=== PATIENT | male | born 1940 | race Caucasian/White ===

== ENCOUNTER 2016-03-18 20:31 | Observation (INO) | payer OTHER ==
[2016-03-18] MEDS ORDERED: NS 500 ML IV ONE (20:56)
--- NOTE | 2016-03-18 21:02 | EDPHY ---
H & P Time Seen by Provider: 03/18/16 20:41 HPI/ROS: CHIEF COMPLAINT: "siezure" HISTORY OF PRESENT ILLNESS: Patient is a 75-year-old male who presents emergency department with seizures. Patient developed a viral cough about 7 weeks ago. He has now had numerous episodes of seizure after having coughing episodes. Patient was seen the Tuesday before Rox[facility] at [facility] for these symptoms. He was treated with albuterol and antibiotics. Since that time he has had numerous episodes of this seizure-like activity and collapse. Today it was the worst. He was sitting on the couch. He had a coughing fit and then had seizure-like activity. He laid on the ground and was unresponsive. When he woke up he had no idea that anything was wrong. He thought he had been sleeping. The patient has no complaints at this time. He states he is here only because his made him. He denies headache, neck pain , nausea, vomiting, chest pain, shortness of breath. REVIEW OF SYSTEMS: My complete review of systems is negative except as mentioned in the HPI. Past Medical/Surgical History: Includes pneumonia, diverticulitis Past surgical history: Noncontributory Social history: The patient is . He smokes regularly. Smoking Status: Current every day smoker Physical Exam: Vitals noted GENERAL: Well-appearing, in no acute distress, alert. HEENT: Eyes normal to inspection, normal pharynx, no signs of dehydration. NECK: No thyromegaly, no lymphadenopathy, supple. RESPIRATORY: Clear to auscultation bilaterally, no rales, rhonchi or wheezing. CVS: Regular rate and rhythm, no rubs, murmurs, or gallops. ABDOMEN: Soft, nontender, nondistended, no organomegaly. BACK: Normal to inspection, no CVA tenderness. SKIN: Normal color, no rash, warm, dry. No pallor. EXTREMITIES: No pedal edema, no calf tenderness, no Homans sign or cords, no joint swelling. NEURO/PSYCH: Higher functions: Alert and Oriented x3. Normal speech and cognition. Normal mood and affect. Cranial nerves: Normal as tested. Cerebellar: Normal as tested. Good finger to nose, good [id number]-lvzf, normal gait. Peripheral exam: Normal motor exam. Normal sensation. Normal reflexes. Constitutional: Initial Vital Signs Temperature (C) 36.7 C 03/18/16 20:36 Heart Rate 79 03/18/16 20:36 Respiratory Rate 16 03/18/16 20:36 Blood Pressure 138/69 H 03/18/16 20:36 O2 Sat (%) 90 L 03/18/16 20:36 O2 Delivery Mode Room Air Allergies/Adverse Reactions: Penicillins Allergy (Unknown, Verified 03/18/16 20:35) Other-Enter Comments Home Medications: Medication Instructions Recorded NO HOME MEDS 07/28/09 Aspirin 03/18/16 Multi-Vitamin Daily 03/18/16 Medical Decision Making ED Course/Re-evaluation: In the emergency department I discussed possible etiologies. I answered all the patient's questions. IV was placed. Laboratory studies, chest x-ray and CT scan were ordered. I reviewed the patient's laboratories studies. The patient has a normal troponin. Chemistry and CBC are normal. Head CT: Please refer the dictated report by Dr. Pancho Benito. No significant bleed or mass. Differential Diagnosis: My differential includes but is not limited to dysrhythmia, syncope, ACS, acute CO, malignancy, mass, subarachnoid hemorrhage, subdural hematoma - Data Points Laboratory Results: Laboratory Results 03/18/16 21:25 03/18/16 21:25 03/18/16 21:25 WBC 8.94 10^3/uL (3.80-9.50) RBC 4.49 10^6/uL (4.40-6.38) Hgb 15.3 g/dL (13.7-17.5) Hct 42.7 % (40.0-51.0) MCV 95.1 fL (81.5-99.8) MCH 34.1 pg (27.9-34.1) MCHC 35.8 g/dL (32.4-36.7) RDW 12.7 % (11.5-15.2) Plt Count 331 10^3/uL (150-400) MPV 9.8 fL (8.7-11.7) Neut % (Auto) 66.6 % (39.3-74.2) Lymph % (Auto) 22.6 % (15.0-45.0) [place] % (Auto) 7.9 % (4.5-13.0) Eos % (Auto) 2.1 % (0.6-7.6) Baso % (Auto) 0.6 % (0.3-1.7) Nucleat RBC Rel Count 0.0 % (0.0-0.2) Absolute Neuts (auto) 5.95 10^3/uL (1.70-6.50) Absolute Lymphs (auto) 2.02 10^3/uL (1.00-3.00) Absolute Monos (auto) 0.71 10^3/uL (0.30-0.80) Absolute Eos (auto) 0.19 10^3/uL (0.03-0.40) Absolute Basos (auto) 0.05 10^3/uL (0.02-0.10) Absolute Nucleated RBC 0.00 10^3/uL (0-0.01) Immature Gran % 0.2 % (0.0-1.1) Immature Gran # 0.02 10^3/uL (0.00-0.10) PT 12.8 SEC (12.0-15.0) INR 0.97 (0.83-1.16) APTT 29.0 SEC (23.0-38.0) Sodium 141 mEq/L (134-144) Potassium 4.7 mEq/L (3.5-5.2) Chloride 102 mEq/L (97-110) Carbon Dioxide 27 mEq/l (22-31) Anion Gap 12 mEq/L (8-16) BUN 19 mg/dL (7-23) Creatinine 1.1 mg/dL (0.7-1.3) Estimated GFR > 60 Glucose 76 mg/dL (70-100) Calcium 9.5 mg/dL (8.5-10.4) Troponin I < 0.012 ng/mL (0-0.034) Medications Given: Discontinued Medications Sodium Chloride (Ns) 500 mls @ 500 mls/hr IV EDNOW ONE Stop: 03/18/16 21:55 Last Admin: 03/18/16 21:30 Dose: 500 mls
--- NOTE | 2016-03-18 21:28 | CT ---
CT Head Without Contrast History: Syncope Technique: Soft tissue and bone window evaluation is performed. Dose reduction techniques were utiliz ed. Findings: There is subtle asymmetric hypodensity in the white matter lateral to the posterior upper l eft thalamus, deep within the left posterior temporal lobe. There is no evidence for hemorrhage or mi dline shift. There is a small old lacunae in the left posterior limb internal capsule. Ventricular si ze is normal and is consistent with the mildly atrophic sulci. There is no evidence of a subdural hem atoma. The ambient cistern is patent. Bone window evaluation does not show evidence of a fracture or pneumocephalus. There is atherosclerotic calcification of both distal internal carotid arteries. Ther e are bilateral nasal antral windows. There is mucus and mucosal thickening in the left maxillary sin us which remains partially aerated. The other paranasal and mastoid sinuses and both middle ears matthew in normally aerated. There is severe degenerative change of the joint between the right lateral mass of C1 and C2, likely related to remote trauma. There is degenerative arthritic change of the joint be tween the odontoid process and the anterior ring of C1. 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 Impression: Subtle asymmetry in the deep left posterior temporal lobe. Consider CT with IV contrast o r MRI without and with contrast for further evaluation. Final concordant results discussed with Dr. Loerna Billy at 9:24 p.m. General information for patients regarding this examination can be found at [email or web address]. If you have questions or comments about this report, please contact me at [phone] (hospital) or [phone] (cell).
[2016-03-18 21:37] LABS: % IMMATURE GRANULYOCYTES 0.2 % (0.0-1.1); ABSOLUTE IMMATURE GRANULOCYTES 0.02 10^3/uL (0.00-0.10); ADD DIFF? NO; ADD MORPH? NO; ADD SCAN? NO; ATYPICAL LYMPHOCYTE FLAG 20 (0-99); FRAGMENT RBC FLAG 0 (0-99); HEMATOCRIT 42.7 % (40.0-51.0); HEMOGLOBIN 15.3 g/dL (13.7-17.5); LEFT SHIFT FLG 0 (0-99); LIPEMIA HEMOLYSIS FLAG 90 (0-99); MEAN CELL HEMOGLOBIN 34.1 pg (27.9-34.1); MEAN CELL HEMOGLOBIN CONCENTR. 35.8 g/dL (32.4-36.7); MEAN CELL VOLUME 95.1 fL (81.5-99.8); MEAN PLATELET VOLUME 9.8 fL (8.7-11.7); PLATELET CLUMPS FLAG 10 (0-99); PLATELET COUNT 331 10^3/uL (150-400); RED BLOOD CELL COUNT 4.49 10^6/uL (4.40-6.38); RED CELL DISTRIBUTION WIDTH 12.7 % (11.5-15.2)
--- NOTE | 2016-03-18 21:40 | DX ---
Chest, PA and Lateral History: Patient fainted today. Comparison: April 26, 2014 Findings: No pneumothorax, pleural effusion, pulmonary consolidation, cardiomegaly or obvious fractur e is identified. Heart size and pulmonary vascularity are normal. Lung volumes remain moderately prom inent and there is chronic bronchial wall thickening suggesting underlying COPD. There is chronic ath erosclerotic calcification of aortic arch. There are stable old healed right lateral 6th and 7th rib fractures. There is stable degenerative and remote posttraumatic change in the midthoracic spine. Impression: COPD. Nothing acute identified.
[2016-03-18 21:45] LABS: INR 0.97 (0.83-1.16); PROTIME(PATIENT) 12.8 SEC (12.0-15.0)
[2016-03-18 21:51] LABS: ANION GAP 12 mEq/L (8-16); CALCIUM 9.5 mg/dL (8.5-10.4); CARBON DIOXIDE 27 mEq/l (22-31); CHLORIDE 102 mEq/L (97-110); CREATININE 1.1 mg/dL (0.7-1.3); GLOMERULAR FILTRATION RATE > 60; GLUCOSE 76 mg/dL (70-100); POTASSIUM 4.7 mEq/L (3.5-5.2); SODIUM 141 mEq/L (134-144)
[2016-03-18 22:02] LABS: TROPONIN I < 0.012 ng/mL (0-0.034)
[2016-03-18] MEDS ORDERED: ONDANSETRON DISINTEGRATING 4 MG TAB PO PRN (22:30)
[2016-03-18] MEDS ORDERED: ONDANSETRON 4 MG/2 ML VIAL IVP PRN (22:30)
[2016-03-18] MEDS ORDERED: ACETAMINOPHEN 325 MG TAB PO PRN (22:30)
[2016-03-18] MEDS ORDERED: IOPAMIDOL (ISOVUE 370) 100 ML BTL IV ONE (22:31)
--- NOTE | 2016-03-18 23:05 | CT ---
CT Head With Contrast, 22:49 History: Syncope, possible abnormality deep in the left temporal lobe seen on noncontrast CT earlier Comparison: noncontrast CT at 21:07 Technique: 80 mL Isovue-300 injected intravenously without complication. Soft tissue window evaluatio n is performed. Dose reduction techniques were utilized. Findings: No enhancing or nonenhancing is identified in the left deep temporal-parietal junction. The re is no evidence for metastasis , abnormal vascularity or mass effect. Impression: No convincing evidence of an abnormality suspect that on the noncontrast CT. Noncontrast MRI might be complementary, as clinically directed. Differential diagnosis includes microvascular isc hemic change of unknown chronicity , localized demyelination or potentially acute ischemic infarction . Final concordant results discussed with Dr. Billy. General information for patients regarding this examination can be found at [email or web address]. If you have questions or comments about this report, please contact me at [phone] (hospital) or [phone] (cell).
[2016-03-19] MEDS ORDERED: BENZONATATE 100 MG CAP PO PRN (00:05)
--- NOTE | 2016-03-19 00:35 | GHP ---
[f rep st] HISTORY AND PHYSICAL DATE OF ADMISSION: 03/18/2016 CHIEF COMPLAINT: Syncope. HISTORY: The patient is a 75-year-old male with history significant for tobacco abuse, presenting after a syncopal episode witnessed by his . The patient reports having pneumonia for the past month. He received Z-Yonis, completed that, and was feeling better. However, cough with clear sputum has persisted, along with nasal congestion. He was sitting watching TV today, and per , he had a coughing fit and then passed out. He does not recall the event. He denies any prodromal symptoms including chest pain, shortness of breath, dizziness, clamminess, or lightheadedness. He denies fevers, chills, or sweats. No nausea, vomiting, diarrhea. He has a normal appetite. He doubts he has been drinking enough liquids. He walks to work 2-1/2 miles without chest pain or shortness of breath. He actually had a similar presentation in 2009, in which he was syncopal after a cough. At that time, he was recommended to have an outpatient echocardiogram and stress test. He was unclear if he actually completed this. It is not in our records here. REVIEW OF SYSTEMS: I completed a complete 10-point review of systems, negative except as noted in HPI. PAST MEDICAL HISTORY: Tobacco abuse. PAST SURGICAL HISTORY: 1. Partial colectomy for colonic polyps. 2. Umbilical hernia repair. SOCIAL HISTORY: Tobacco for greater than 50 years, a pack a day, still smoking 3 cigarettes a day. Alcohol 1-2 glasses of wine nightly. No illicits. Lives in [place] with his . 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 FAMILY HISTORY: Dad had a heart attack and strokes x2. Brother had a liver transplant. Unclear mother's health conditions. MEDICATIONS: Vitamins, full-dose aspirin. ALLERGIES: Penicillin. PHYSICAL EXAMINATION: VITAL SIGNS: Temperature is 36.6, blood pressure is 120/ 82, heart rate in the 70s, respiration 20, 98% on room air. GENERAL: Well nourished, no acute distress, lying in bed. HEENT: PERRLA, EOMI. Oropharynx clear. CARDIOVASCULAR: Regular rate and rhythm. No murmurs, gallops, or rubs. No JVD. No lower extremity edema. LUNGS: Clear but diminished throughout. No crackles or wheezes. ABDOMEN: Soft, nontender, nondistended. Positive bowel sounds. GENITOURINARY: No Brito. No suprapubic tenderness. MUSCULOSKELETAL: 5/5 upper and lower extremity strength. NEUROLOGIC: 2 through 12 intact. No focal deficits. PSYCHIATRIC: Alert and oriented x3. LABORATORY DATA: WBC 8.9, hemoglobin 15, hematocrit 42, platelets 331. Sodium 141, potassium 4.7, chloride 102, carbon dioxide 27, BUN 19, creatinine 1.1, glucose 76. Troponin less than 0.02. Chest x-ray was personally reviewed by me. Hyperexpansion, no effusion or opacity. Head CT: Subtle asymmetry in the deep left posterior temporal lobe. CTA: No convincing evidence of abnormality suspected on the noncontrast CT. EKG is pending. ASSESSMENT AND PLAN: 1. Syncope: suspect this is vasovagal in the setting of coughing fit. The patient denies chest pain, shortness of breath, or any prodromal symptoms. He has had similar episodes in the past with coughing. Electrolytes look within normal and has been taking in normal p.o. intake. Will monitor in EACU on telemetry. Repeat troponin and EKG. Can consider echocardiogram, but also could follow up as an outpatient. 2. Cough: likely bronchitis. Treated for PNA outpatient and no evidence infection on today's CXR. Tobacco use contributing. Tessalon pearls. 3. Tobacco abuse. Patient is counseled on cessation. 4. Abnormal CT finding: non-con CT with asymmetry in temporal lobe. CTA normal. 5. Diet. Regular. 6. Deep venous thrombosis prophylaxis. Low risk, ambulatory. DISPOSITION: The patient warrants inpatient admission given acute syncopal episode requiring monitoring and serial troponins and EKGs. /[id number]/MODL MTDD
--- NOTE | 2016-03-19 00:38 | CPEKG ---
Heart Rate: 73 RR Interval: 822 P-R Interval: 144 QRSD Interval: 92 QT Interval: 388 QTC Interval: 428 P [place]: 62 QRS [place]: -72 T Wave [place]: 44 EKG Severity - ABNORMAL ECG - EKG Impression: SINUS RHYTHM EKG Impression: LEFT ANTERIOR FASCICULAR BLOCK Electronically Signed By: Gary Haji 19-Mar-2016 10:22:14
[2016-03-19 04:04] VITALS: RESP 24
[2016-03-19 08:31] VITALS: BP 131/83; PULSE 68; TEMP 97.9; O2SAT 89
[2016-03-19] MEDS ORDERED: ALBUTEROL SULFATE 90 MCG IH PRN (10:06)
[2016-03-19] MEDS ORDERED: [UNRECOGNIZED DRUG - OTHER] PO PRN (10:06)
[2016-03-19] MEDS ORDERED: GUAIFENESIN PO PRN (10:06)
[2016-03-19] MEDS ORDERED: CODEINE PHOSPHATE PO PRN (10:06)
[2016-03-19] MEDS ORDERED: ALBUTEROL 60 PUFFS/8 GM MDI IH PRN (10:09)
[2016-03-19] MEDS ORDERED: guaiFENesin/CODEINE PHOS 10 ML UDCUP PO PRN (10:10)
[2016-03-19] MEDS ORDERED: MULTIVITAMINS 1 EACH TAB PO SCH (10:30)
[2016-03-19] MEDS ORDERED: ASPIRIN 325 MG TAB PO SCH (10:30)
--- NOTE | 2016-03-19 15:53 | PDDCSUM ---
Discharge Summary Discharge Summary: Dates of service 03/19- Hospital course by problem: # syncope: sounds vasovagal by history, reviewed w/u options with patient and given that he feels so much better and no recurrent sxs, he would prefer to f/u with his pcp for ongoing management. # cough: largely resolved, continue tessalon perles # COPD: undiagnosed but given cxr and longstanding smoking history will dc with duonebs, continue albuterol prn # tobacco use: recommended cessation DC home, f/u with PCP (he has a name to establish care with)
[2016-03-19] MEDS ORDERED: PRESERVISION AREDS 2 EYE VITAMIN 1 EACH PO SCH (21:00)
== END 2016-03-19 11:03 | disposition home or self-care (01) ==
LOC: F1N 23:20
PROVIDERS: ADMIT Internal Medicine; ATTEND Internal Medicine
DX: R55 Syncope and collapse (principal); R05 Cough; J44.9 Chronic obstructive pulmonary disease, unspecified; F17.210 Nicotine dependence, cigarettes, uncomplicated; Z87.01 Personal history of pneumonia (recurrent); Z86.010 Personal history of colon polyps; Z90.49 Acquired absence of other specified parts of digestive tract
CPT/HCPCS: 70450; 70460; 71020; 93005; 96360; 99285; G0378; Q9967

== ENCOUNTER → 2016-08-17 | Outpatient (CLI) | payer OTHER | LOC: BMCIMAGING 12:30 | PROVIDERS: ATTEND Internal Medicine Pulmonary Disease | DX: J44.9 Chronic obstructive pulmonary disease, unspecified (principal); F17.200 Nicotine dependence, unspecified, uncomplicated ==

== ENCOUNTER → 2017-01-03 | Outpatient (CLI) | payer OTHER | LOC: FIMAGING 08:39 | PROVIDERS: ATTEND Internal Medicine Pulmonary Disease | DX: J43.9 Emphysema, unspecified (principal); I25.10 Atherosclerotic heart disease of native coronary artery without angina pectoris ==

== ENCOUNTER 2017-01-09 09:35 | Emergency (ER) | payer OTHER ==
[2017-01-09 09:44] VITALS: TEMP 98.6
[2017-01-09] MEDS ORDERED: LIDOCAINE 5% 1 EA PATCH TD ONE (10:33)
[2017-01-09] MEDS ORDERED: OXYCODONE/APAP 5/325 TAB PO ONE (10:34)
[2017-01-09] MEDS ORDERED: CYCLOBENZAPRINE 10 MG TAB PO ONE (10:34)
--- NOTE | 2017-01-09 12:00 | EDPHY ---
General Narrative: CHIEF COMPLAINT: Back pain HISTORY OF PRESENT ILLNESS: Patient complains of low back pain on the left side. This started approximately 8 days ago after changing his golf swing. It has been constant duration. Severe enough to the point now that he cannot walk due to pain. Radiates around to the left side of the abdomen. No midline pain. No numbness or tingling. No weakness. No incontinence of bowel or bladder. No retention of bowel or bladder. No other associated complaints or modifying factors. REVIEW OF SYSTEMS: Ten systems reviewed and are negative unless otherwise noted in the HPI PCP: Dr. Stefanie Blandon SPECIALISTS: Dr. Villela, pulmonology PAST MEDICAL HISTORY: COPD, macular degeneration, GERD PAST SURGICAL HISTORY: Laparotomy for diverticulitis, hernia repair SOCIAL HISTORY: Former smoker FAMILY HISTORY: Noncontributory EXAMINATION General Appearance: Alert, no distress Head: normocephalic, atraumatic Eyes: Pupils equal and round, no conjunctival pallor or injection ENT, Mouth: Mucous membranes moist Neck: Normal inspection, supple, non-tender Respiratory: No retractions or distress Cardiovascular: Regular rate. Pulses intact distally Back: Tenderness on the lumbar spine and laterally. There is no crepitus. No step-off or deformity. Neurological: GCS 15. Cranial nerves 2-12 grossly intact A&O, nonfocal, antalgic gait. Strength is symmetric in the lower extremities. Patellar reflexes symmetric. Skin: Warm and dry, no rash Extremities: Nontender, no pedal edema Psychiatric: Mood and affect normal DIFFERENTIAL DIAGNOSES: Including but not limited to sprain, strain, disc injury MDM: 10:35 a.m. Back pain of the left lower back that radiates to the side. Suspected this may be a disc injury. There is no evidence of acute cord compression. There is minimal midline tenderness, thus I have ordered an x-ray. He is neuro intact. 12:00 p.m. Lumbar x-ray reveals grade 1 spondylolisthesis. I have re-evaluated the patient. He says that he feels "400% better." Patient likely be able to be discharged home but I will obtain the recommended flexion-extension x-rays to ensure that the spondylolisthesis is not unstable. I do feel this is of a chronic scenario that is not yet been imaged. I will obtain a plain films and plan for discharge home with outpatient MRI if it is normal. 1:00 p.m. X-ray of the lumbar spine with lateral flexion extension reveals no instability of the spondylolisthesis. Patient continues to feel better. He is ambulatory and wants to go home. I do not feel he warrants and an emergent MRI at this time. He has no neuro deficits. His pain is tolerable. He would like to be discharged home. I will do so, and he will follow up with primary care physician to discuss an MRI of the lumbar spine. Additionally, I have provided the information for the on-call neurosurgeon to follow up with. We discussed at length ED precautions, including worsening pain, numbness, tingling, weakness of the legs, incontinence, urinary or bowel retention. He and his spouse are comfortable this plan. He leaves fully ambulatory without assistance. - Diagnostics Imaging Results: Imaging Impressions Lumbar Spine X-Ray 01/09/17 10:34 Impression: 1. Grade 1 spondylolisthesis L5-S1 associated with severe facet degeneration. Other degenerative changes are described above. If there is concern for instability, consider lateral lumbar flexion extension films. 2. Severe constipation. 3. Atherosclerotic disease. Lumbar Spine X-Ray 01/09/17 12:07 Impression: No instability of the L5-S1 spondylolisthesis. - History Smoking Status: Current every day smoker - Objective Vital Signs: Initial Vital Signs Temperature (C) 98.6 F 01/09/17 09:40 Heart Rate 68 01/09/17 09:40 Respiratory Rate 18 01/09/17 09:40 Blood Pressure 153/82 H 01/09/17 09:40 O2 Sat (%) 97 01/09/17 09:40 O2 Delivery Mode Room Air Allergies/Adverse Reactions: Penicillins Allergy (Unknown, Verified 03/18/16 20:35) Other-Enter Comments Home Medications: Medication Instructions Recorded Acetaminophen [Tylenol 325mg (*)] 650 mg PO Q4HRS PRN #0 tab 03/19/16 Albuterol Sulfate [Proair 90 mcg IH Q4H PRN 03/19/16 Respiclick] Aspirin [Aspirin 325 mg (*)] 325 mg PO DAILY 03/19/16 Benzonatate [Tessalon Pearles] 200 mg PO TID PRN #21 cap 03/19/16 C/E/Zn/Cu/OM3/DHA/EPA/LUT/ZEAX 1 each PO BID 03/19/16 [Preservision Areds 2 Softgel] Codeine Phosphate/Guaifenesin 5 ml PO Q4-6PRN PRN 03/19/16 [Codeine-Guaifen 10-100 mg/5 ml] Herbals/Supplements -Info Only 1 ea PO DAILY 03/19/16 Ipratropium/Albuterol [Combivent 1 inh IH QID #1 mdi 03/19/16 Respimat Inhal [place](*)] Multivitamins [Multivitamin (*)] 1 each PO DAILY 03/19/16 Cyclobenzaprine [Flexeril 10 MG 10 mg PO TID PRN #15 tab 01/09/17 (*)] oxyCODONE HCL/ACETAMINOPHEN 1 each PO Q4-6PRN PRN #13 tablet 01/09/17 [Percocet 5-325 mg Tablet] Medications Given: Discontinued Medications Cyclobenzaprine HCl (Flexeril) 10 mg PO EDNOW ONE Stop: 01/09/17 10:35 Last Admin: 01/09/17 10:40 Dose: 10 mg Lidocaine (Lidoderm 5%) 1 ea TD EDNOW ONE Stop: 01/09/17 10:34 Last Admin: 01/09/17 10:41 Dose: 1 ea Oxycodone/Acetaminophen (Percocet 5/325) 1 tab PO EDNOW ONE Stop: 01/09/17 10:35 Last Admin: 01/09/17 10:40 Dose: 1 tab Departure - Departure Disposition: Home, Routine, Self-Care Clinical Impression: Lumbar radiculopathy, Spondylolisthesis at L5-S1 level Acute low back pain Qualifiers: Back pain laterality: left Sciatica presence: without sciatica Qualified Code(s ): M54.5 - Low back pain Condition: Good Instructions: Lumbar Radiculopathy (ED), Spondylolisthesis (ED) Additional Instructions: 1. Follow up with primary care physician to discuss the atherosclerosis and low back pain 2. Follow up with Neurosurgery in for low back pain for MRI 3. Return to ED for any worsening pain, numbness, tingling, weakness, incontinence as discussed 4. Pain medications as discussed Referrals: Stefanie Hernandez MD [Primary Care Provider] - As per Instructions Kosta Gonzalez MD [Medical Doctor] - As per Instructions Prescriptions: Cyclobenzaprine [Flexeril 10 MG (*)] 10 mg PO TID PRN #15 tab PRN Reason: Spasms oxyCODONE HCL/ACETAMINOPHEN [Percocet 5-325 mg Tablet] 1 each PO Q4-6PRN PRN # 13 tablet PRN Reason: Pain, Breakthrough
[2017-01-09 13:18] VITALS: BP 154/93; PULSE 61; RESP 16; O2SAT 95
[2017-01-09] MEDS ORDERED: PATCH REMOVAL 1 EA PATCH TD SCH (21:00)
== END 2017-01-09 13:20 | disposition home or self-care (01) ==
DX: M54.16 Radiculopathy, lumbar region (principal); M43.17 Spondylolisthesis, lumbosacral region; J44.9 Chronic obstructive pulmonary disease, unspecified; F17.200 Nicotine dependence, unspecified, uncomplicated; Z79.82 Long term (current) use of aspirin

== ENCOUNTER 2017-01-23 02:34 | Observation (INO) | payer OTHER ==
--- NOTE | 2017-01-23 02:38 | EDPHY ---
H & P HPI/ROS: HPI CHIEF COMPLAINT: Abdominal pain nausea, vomiting HISTORY OF PRESENT ILLNESS: Patient is a very pleasant 76-year-old male, presents emergency room with abdominal pain nausea vomiting. He states around 8 :00 p.m. tonight he developed abdominal pain mid abdomen. Associated nausea vomiting he had distinct 2 episodes of vomiting. With multiple episodes. States he had decreased bowel movement today in flatus. Had chills earlier at the football game. But no abdominal pain developed abdominal pain around 8:00 p.m. Past Medical History: COPD, macular degeneration, GERD, diverticulitis Past Surgical History: Laparoscopic surgery for diverticulitis Social History: Denies daily use of drugs alcohol tobacco. Family History: Noncontributory ROS REVIEW OF SYSTEMS: A comprehensive 10 point review of systems is otherwise negative aside from elements mentioned in the history of present illness. Exam Constitutional triage nursing summary reviewed, vital signs reviewed, awake/ alert. Eyes normal conjunctivae and sclera, EOMI, PERRLA. HENT normal inspection, atraumatic, moist mucus membranes, no epistaxis, neck supple/ no meningismus, no raccoon eyes. Respiratory clear to auscultation bilaterally, normal breath sounds, no respiratory distress, no wheezing. Cardiovascular rate normal, regular rhythm, no murmur, no edema, distal pulses normal. Gastrointestinal mild tenderness palpation mid abdomen palpable mass present, not pulsating, possible hernia, normal bowel sounds, no distension, no pulsatile mass. Genitourinary no CVA tenderness. Musculoskeletal no midline vertebral tenderness, full range of motion, no calf swelling, no tenderness of extremities, no meningismus, good pulses, neurovascularly intact. Skin pink, warm, & dry, no rash, skin atraumatic. Neurologic awake, alert and oriented x 3, AAOx3, moves all 4 extremities equally, motor intact, sensory intact, CN II-XII intact, normal cerebellar, normal vision, normal speech. Psychiatric normal mood/affect. Heme/Lymph/Immune no lymphadenopathy. Differential diagnosis includes but is not limited to and in no particular order : Bowel obstruction, appendicitis, gallbladder disease, diverticulitis, colitis , enteritis, perforated viscus, gastritis, GERD, esophagitis, urinary tract infection, pyelonephritis, kidney stones, incarcerated hernia, strangulated hernia Medical Decision Making: Plan for this patient IV established with IV fluid bolus, 4 mg Zofran for nausea, 1 mg Dilaudid for pain control, check abdominal blood work, UA, CT scan abdomen pelvis with IV contrast with i-STAT creatinine. Re-evaluation: 0419: Notified surgery about this patient's CT scan results. CT abdomen pelvis with IV contrast called me most likely early small bowel obstruction versus ileus. Given this patient's abdominal pain nausea vomiting decreased flatus and no bowel movement most likely this is a small-bowel obstruction. He does have risk factors for SBO including multiple abdominal surgeries. Plan for this patient NG tube. Surgical consult with Dr. Yao. Admission to the hospital for SBO. At this time is comfortable IV pain medicine lactic acid less than 2. He is not vomiting. Will place NG tube and admit to medical surgical floor with Dr. Yao consulting. Source: Patient - Medical/Surgical History Hx Asthma: No Hx Chronic Respiratory Disease: No Hx Diabetes: No Hx Cardiac Disease: No Hx Renal Disease: No Hx Cirrhosis: No Hx Alcoholism: No Hx HIV/AIDS: No Hx Splenectomy or Spleen Trauma: No Other PMH: PNA, diverticulitis; colectomy-2009;S/P T&A;MACULAR DEGENERATION - Social History Smoking Status: Current every day smoker Constitutional: Initial Vital Signs Temperature (C) 36.5 C 01/23/17 02:35 Heart Rate 87 01/23/17 02:35 Respiratory Rate 18 01/23/17 02:35 Blood Pressure 158/88 H 01/23/17 02:35 O2 Sat (%) 91 L 01/23/17 02:35 O2 Delivery Mode Nasal Cannula O2 (L/minute) 3 Allergies/Adverse Reactions: Penicillins Allergy (Unknown, Verified 03/18/16 20:35) Other-Enter Comments Home Medications: Medication Instructions Recorded Aspirin [Aspirin 325 mg (*)] 325 mg PO DAILY 03/19/16 Herbals/Supplements -Info Only 1 ea PO DAILY 03/19/16 Multivitamins [Multivitamin (*)] 1 each PO DAILY 03/19/16 Advair 100/50 (*) 01/23/17 Medical Decision Making - Data Points Laboratory Results: Laboratory Results 01/23/17 03:00 01/23/17 03:00 01/23/17 01/23/17 01/23/17 03:00 03:00 03:00 WBC 12.49 10^3/uL H 10^3/uL (3.80-9.50) RBC 4.80 10^6/uL 10^6/uL (4.40-6.38) Hgb 16.2 g/dL g/dL (13.7-17.5) POC Hgb Hct 46.3 % % (40.0-51.0) POC Hct MCV 96.5 fL fL (81.5-99.8) MCH 33.8 pg pg (27.9-34.1) MCHC 35.0 g/dL g/dL (32.4-36.7) RDW 13.3 % % (11.5-15.2) Plt Count 310 10^3/uL 10^3/uL (150-400) MPV 9.9 fL fL (8.7-11.7) Neut % (Auto) 78.0 % H % (39.3-74.2) Lymph % (Auto) 12.7 % L % (15.0-45.0) Freestone % (Auto) 6.9 % % (4.5-13.0) Eos % (Auto) 1.5 % % (0.6-7.6) Baso % (Auto) 0.6 % % (0.3-1.7) Nucleat RBC Rel Count 0.0 % % (0.0-0.2) Absolute Neuts (auto) 9.75 10^3/uL H 10^3/uL (1.70-6.50) Absolute Lymphs (auto) 1.58 10^3/uL 10^3/uL (1.00-3.00) Absolute Monos (auto) 0.86 10^3/uL H 10^3/uL (0.30-0.80) Absolute Eos (auto) 0.19 10^3/uL 10^3/uL (0.03-0.40) Absolute Basos (auto) 0.07 10^3/uL 10^3/uL (0.02-0.10) Absolute Nucleated RBC 0.00 10^3/uL 10^3/uL (0-0.01) Immature Gran % 0.3 % % (0.0-1.1) Immature Gran # 0.04 10^3/uL 10^3/uL (0.00-0.10) PT 12.7 SEC SEC (12.0-15.0) INR 0.96 (0.83-1.16) APTT 27.6 SEC SEC (23.0-38.0) VBG Lactic Acid POC Sodium Sodium 142 mEq/L mEq/L (134-144) POC Potassium Potassium 4.7 mEq/L mEq/L (3.5-5.2) POC Chloride Chloride 101 mEq/L mEq/L (97-110) Carbon Dioxide 29 mEq/l mEq/l (22-31) Anion Gap 12 mEq/L mEq/L (8-16) POC BUN BUN 28 mg/dL H mg/dL (7-23) Creatinine 1.4 mg/dL H mg/dL (0.7-1.3) POC Creatinine Estimated GFR 50 Glucose 125 mg/dL H mg/dL (70-100) POC Glucose Calcium 9.8 mg/dL mg/dL (8.5-10.4) Total Bilirubin 0.7 mg/dL mg/dL (0.1-1.4) Conjugated Bilirubin 0.1 mg/dL mg/dL (0.0-0.5) Unconjugated Bilirubin 0.6 mg/dL mg/dL (0.0-1.1) AST 29 IU/L IU/L (17-59) ALT 42 IU/L IU/L (21-72) Alkaline Phosphatase 80 IU/L IU/L (38-126) Total Protein 7.3 g/dL g/dL (6.3-8.2) Albumin 4.7 g/dL g/dL (3.5-5.0) Lipase 62 IU/L IU/L (23-300) 01/23/17 01/23/17 03:00 02:53 WBC RBC Hgb POC Hgb 17.7 gm/dL H gm/dL (13.7-17.5) Hct POC Hct 52 % H % (40-51) MCV MCH MCHC RDW Plt Count MPV Neut % (Auto) Lymph % (Auto) Freestone % (Auto) Eos % (Auto) Baso % (Auto) Nucleat RBC Rel Count Absolute Neuts (auto) Absolute Lymphs (auto) Absolute Monos (auto) Absolute Eos (auto) Absolute Basos (auto) Absolute Nucleated RBC Immature Gran % Immature Gran # PT INR APTT VBG Lactic Acid 1.5 mmol/L mmol/L (0.7-2.1) POC Sodium 143 mEq/L mEq/L (134-144) Sodium POC Potassium 4.4 mEq/L mEq/L (3.3-5.0) Potassium POC Chloride 102 mEq/L mEq/L (97-110) Chloride Carbon Dioxide Anion Gap POC BUN 29 mg/dL H mg/dL (7-23) BUN Creatinine POC Creatinine 1.4 mg/dL H mg/dL (0.7-1.3) Estimated GFR Glucose POC Glucose 126 mg/dL H mg/dL (70-100) Calcium Total Bilirubin Conjugated Bilirubin Unconjugated Bilirubin AST ALT Alkaline Phosphatase Total Protein Albumin Lipase Medications Given: Discontinued Medications Hydromorphone HCl (Dilaudid) 0.5 mg IVP EDNOW ONE Stop: 01/23/17 02:52 Last Admin: 01/23/17 02:59 Dose: 0.5 mg Sodium Chloride (Ns) 1,000 mls @ 0 mls/hr IV EDNOW ONE; Wide Open PRN Reason: Protocol Stop: 01/23/17 02:52 Last Admin: 01/23/17 03:03 Dose: 1,000 mls Sodium Chloride (Ns) 1,000 mls @ 0 mls/hr IV ONCE ONE PRN Reason: Wide Open Stop: 01/23/17 03:16 Last Admin: 01/23/17 03:54 Dose: 1,000 mls Ondansetron HCl (Zofran) 4 mg IVP EDNOW ONE Stop: 01/23/17 02:52 Last Admin: 01/23/17 02:59 Dose: 4 mg Point of Care Test Results: 01/23/17 02:53 POC Sodium 143 POC Potassium 4.4 POC Chloride 102 POC BUN 29 H POC Creatinine 1.4 H POC Glucose 126 H Departure - Departure Disposition: [facility] Inpatient Acute Clinical Impression: SBO (small bowel obstruction) Abdominal pain Qualifiers: Abdominal location: generalized Qualified Code(s): R10.84 - Generalized abdominal pain Condition: Fair Referrals: Stefanie Hernandez MD [Primary Care Provider] - As per Instructions
[2017-01-23] MEDS ORDERED: ONDANSETRON 4 MG/2 ML VIAL IVP ONE (02:51)
[2017-01-23] MEDS ORDERED: NS 1,000 ML IV ONE ×2 (02:51→03:15)
[2017-01-23] MEDS ORDERED: HYDROmorphONE/DILAUDID 1 MG/ML INJ IVP ONE ×2 (02:51→04:50)
[2017-01-23 03:05] LABS: % IMMATURE GRANULYOCYTES 0.3 % (0.0-1.1); ABSOLUTE IMMATURE GRANULOCYTES 0.04 10^3/uL (0.00-0.10); ADD DIFF? NO; ADD MORPH? NO; ADD SCAN? NO; ATYPICAL LYMPHOCYTE FLAG 10 (0-99); FRAGMENT RBC FLAG 0 (0-99); HEMATOCRIT 46.3 % (40.0-51.0); HEMOGLOBIN 16.2 g/dL (13.7-17.5); LEFT SHIFT FLG 0 (0-99); LIPEMIA HEMOLYSIS FLAG 90 (0-99); MEAN CELL HEMOGLOBIN 33.8 pg (27.9-34.1); MEAN CELL VOLUME 96.5 fL (81.5-99.8); MEAN PLATELET VOLUME 9.9 fL (8.7-11.7); PLATELET CLUMPS FLAG 10 (0-99); PLATELET COUNT 310 10^3/uL (150-400); RED CELL DISTRIBUTION WIDTH 13.3 % (11.5-15.2)
[2017-01-23 03:13] LABS: INR 0.96 (0.83-1.16); PROTIME(PATIENT) 12.7 SEC (12.0-15.0)
[2017-01-23 03:14] LABS: APTT 27.6 SEC (23.0-38.0)
[2017-01-23 03:18] LABS: ALANINE AMINOTRANSFERASE 42 IU/L (21-72); ALBUMIN 4.7 g/dL (3.5-5.0); ALKALINE PHOSPHATASE 80 IU/L (38-126); ANION GAP 12 mEq/L (8-16); ASPARTATE AMINOTRANSFERASE 29 IU/L (17-59); BILIRUBIN,TOTAL 0.7 mg/dL (0.1-1.4); BILIRUBIN-CONJUGATED 0.1 mg/dL (0.0-0.5); BILIRUBIN-UNCONJUGATED 0.6 mg/dL (0.0-1.1); CALCIUM 9.8 mg/dL (8.5-10.4); CARBON DIOXIDE 29 mEq/l (22-31); CHLORIDE 101 mEq/L (97-110); CREATININE 1.4 mg/dL (0.7-1.3); GLOMERULAR FILTRATION RATE 50; GLUCOSE 125 mg/dL (70-100); POTASSIUM 4.7 mEq/L (3.5-5.2); SODIUM 142 mEq/L (134-144); TOTAL PROTEIN 7.3 g/dL (6.3-8.2)
[2017-01-23] MEDS ORDERED: IOPAMIDOL (ISOVUE-300) 100 ML BTL ONE (03:22)
[2017-01-23] MEDS ORDERED: BENZOCAINE UNIT DOSE SPRAY HURRICAINE MM ONE (04:30)
[2017-01-23] MEDS ORDERED: HYDROmorphONE/DILAUDID 1 MG/ML INJ ONE (04:52)
[2017-01-23] MEDS ORDERED: ONDANSETRON 4 MG/2 ML VIAL IVP PRN (05:22)
[2017-01-23] MEDS ORDERED: HYDROmorphONE/DILAUDID 1 MG/ML INJ IVP PRN (05:32)
[2017-01-23] MEDS ORDERED: HEPARIN 5,000 UNIT/0.5 ML SYR SC SCH (06:00)
[2017-01-23] MEDS: KETOROLAC 15 MG/1 ML SDV IVP SCH ×4 (06:37→23:09)
[2017-01-23] MEDS: NS 1,000 ML IV SCH ×2 (06:38→23:09)
--- NOTE | 2017-01-23 07:56 | GHP ---
[f rep st] HISTORY AND PHYSICAL DATE OF ADMISSION: 01/23/2017 ADMITTING DIAGNOSIS: Small bowel obstruction. HISTORY OF PRESENT ILLNESS: The patient is a 76-year-old white male who was in his usual state of good health until last evening. He had popcorn at the game and chili at a friend's house and was not terribly hungry for dinner, but did have dinner. Approximately 8 p.m. he complained of first an epigastric pain which was described as colicky and aching. By 2 a.m. he vomited 4 times. Then , 45 minutes later he vomited 2 more times and decided it was time to come to the ER. Prior abdominal surgery has included a laparoscopic colectomy for diverticulitis and a repair of an umbilical port site hernia. He has an NG tube in at this point, which is in good position, but has only drained 200 cc since placement. PAST MEDICAL HISTORY: He started smoking at age 26 and is still smoking. At a peak, he was smoking 1-1/2 packs a day. He is now down to a quarter of a pack a day. He drinks a glass of wine daily. ALLERGIES: He has had an adverse reaction to penicillin as manifested by fevers when he had his first bout of diverticulitis. CURRENT MEDICATIONS: Include Breo 1 puff daily, a half of an adult aspirin daily, multivitamin, and an herbal supplement. PAST SURGICAL HISTORY: Other surgeries included a tonsillectomy. There is no history of rheumatic fever, tuberculosis, hepatitis, or transfusions. REVIEW OF SYSTEMS: He had ulcers diagnosed in 1966. He believes that was done by a barium swallow. He had a concussion at age 20 when he was sliding on ice, on his shoes, and went down hitting his head. He was hospitalized at that point for several days. He has macular degeneration in both eyes; on the right is described as wet, on the left is dry. He has decreased hearing. He has dental caps. He has 2 dental implants. He does have reflux, for which he takes Tums and occasionally Tagamet. He is unclear as to when the heartburn occurs most for him, but appears to be more probably at night. We talked about limiting oral intake to greater than 4 hours prior to lying down to go to sleep. He sees Dr. Wojciech Villela for his COPD. He used to be on Advair, but is now on Breo. He can climb 1 flight of stairs, but his says he does it slowly. He was in the hospital approximately 3 weeks ago for lumbar disk issues. He feels he may have had a steroid at that point. He notes he has a decreased urinary force, and in fact, his CT scan shows a large prostate. This is a new development for him in the last 2 months. I have suggested urologic evaluation. PHYSICAL EXAMINATION: GENERAL: He is awake, alert, polite, and cooperative. HEENT: His skull is normocephalic and atraumatic. He has an 18-Ukrainian NG tube in his right naris. He is alert and oriented x3. GCS is 15. NEURO: There are no focal lateralizing neurological findings. Specifically, there is no tenderness over L5. NECK: Nontender. There are no carotid bruits. Thyroid does not appear to be enlarged. LYMPHATICS: There is no cervical, supraclavicular, axillary or inguinal lymphadenopathy. BACK: Unremarkable. LUNGS: Clear to auscultation. CHEST: Stable to AP and lateral compression. CARDIAC: Shows S1 and S2 to be normal with no split of S2. ABDOMEN: Shows hypoactive bowel sounds. He is not tender with cough. He is minimally tender to palpation. I do not detect any hernias at this point. LABORATORY DATA: X-ray examination shows his NG tube to be in his stomach and in good position. The CAT scan does show some fecalization of the terminal ileum, but the terminal ileum is not distended. Point of transition appears to be in the mid ileum, but is difficult to sort out. His small bowel is dilated to 3.2-3.5 mm. Note is made (above) that his prostate appears to be enlarged. IMPRESSION: Patient with abdominal surgeries and a history, examination, and CAT scan consistent with a small bowel obstruction. PLAN: I will plan supportive care and decompression. At this point, he does not appear toxic, as his white count is 12.5 with 78% neutrophils. He is afebrile. Lactate is 1.5, creatinine is 1.4, BUN is 28. /[id number]/MODL MTDD
[2017-01-23] MEDS: FLUTICASONE IH SCH (10:55)
[2017-01-23] MEDS: VILANTEROL IH SCH (10:55)
[2017-01-23 19:21] VITALS: O2SAT 95
[2017-01-24 04:46] LABS: % IMMATURE GRANULYOCYTES 0.2 % (0.0-1.1); ABSOLUTE IMMATURE GRANULOCYTES 0.02 10^3/uL (0.00-0.10); ADD DIFF? NO; ADD MORPH? NO; ADD SCAN? NO; ATYPICAL LYMPHOCYTE FLAG 10 (0-99); FRAGMENT RBC FLAG 0 (0-99); HEMATOCRIT 43.5 % (40.0-51.0); HEMOGLOBIN 14.7 g/dL (13.7-17.5); LEFT SHIFT FLG 0 (0-99); LIPEMIA HEMOLYSIS FLAG 90 (0-99); MEAN CELL HEMOGLOBIN 33.4 pg (27.9-34.1); MEAN CELL HEMOGLOBIN CONCENTR. 33.8 g/dL (32.4-36.7); MEAN CELL VOLUME 98.9 fL (81.5-99.8); MEAN PLATELET VOLUME 10.2 fL (8.7-11.7); PLATELET CLUMPS FLAG 0 (0-99); PLATELET COUNT 230 10^3/uL (150-400); RED CELL DISTRIBUTION WIDTH 13.2 % (11.5-15.2)
[2017-01-24] MEDS: KETOROLAC 15 MG/1 ML SDV IVP SCH ×2 (05:45→11:57)
[2017-01-24 07:22] VITALS: BP 143/80; PULSE 79; RESP 14; TEMP 97.9
--- NOTE | 2017-01-24 07:23 | SOAPPROG ---
SOAP Progress Note Assessment/Plan: POD#1 01/24/17 07:20 Assessment: SBO- Improved. large results from enema. Miniimal out NG yesterday (removed at 1 AM). Hungry. no flatus. Nl bowel sounds Plan: Check abdominal flat and upright. If looks good the clear liquids, if not then Gastrografin SNFT to assess degree of blockage. Subjective: I'm hungry Objective: Vital Signs Temp Pulse Resp BP Pulse Ox 36.8 C 63 18 142/81 H 95 01/24/17 04:00 01/24/17 04:00 01/24/17 04:00 01/24/17 04:00 01/24/17 04:00 Laboratory Results 01/24/17 04:16 01/23/17 01/24/17 01/25/17 05:59 05:59 05:59 Intake Total 3913 Output Total 750 Balance 3163 PT 12.7 SEC (12.0-15.0) 01/23/17 03:00 INR 0.96 (0.83-1.16) 01/23/17 03:00 - Time Spent With Patient Time Spent With Patient: 15 Physical Exam - Physical Exam General Appearance: WD/WN, alert, no apparent distress Respiratory: chest non-tender, lungs clear, normal breath sounds Cardiac/Chest: regular rate, rhythm Abdomen: normal bowel sounds, non-tender, soft, guarding Rectal: deferred Back: Normal inspection Skin: normal color, warm/dry Neuro/Psych: no motor/sensory deficits, alert, normal mood/affect, oriented x 3 ICD10 Worksheet Patient Problems: Problems Problem Status Onset Abdominal pain Acute SBO (small bowel obstruction) Acute Syncope, vasovagal Acute
[2017-01-24] MEDS: VILANTEROL IH SCH (08:08)
[2017-01-24] MEDS: FLUTICASONE IH SCH (08:08)
[2017-01-24] MEDS ORDERED: NON-FORMULARY NEW DRUG (Umeclidinium Brm/Vilanterol Tr [Anoro Ellipta 62.5-25 Mcg Inh] 1 E IH SCH (09:00)
[2017-01-24 10:59] LABS: COLOR YELLOW; LEUKOCYTE ESTERASE,URINE NEGATIVE (NEGATIVE); NITRITE,URINE NEGATIVE (NEGATIVE)
--- NOTE | 2017-01-24 11:22 | ASMTCASEMG ---
Living Arrangements What is your living Answers: With Spouse arrangement? Who do you live with? Type Of Residence What kind of residence do Answers: House you live in? Discharge Plan Comments Coordination Status Comments Notes: Pt is a 76 y/o man admitted for a SBO. A rehab evaluation consult has been ordered. CM left a msg for Ayala Dailey at [facility] inpatient rehab. CM spoke w/ AMLIKA Danielle regarding d/c POC. Anticipates that pt will d/c independent when medically stable w/ supportive . Pt is scheduled to have an x-ray today. CM available for d/c needs. Date Signed: 01/24/2017 11:22 AM Electronically Signed By:ASTRID Wharton
--- NOTE | 2017-01-24 14:11 | GDS ---
[f rep st] DISCHARGE SUMMARY DISCHARGE DIAGNOSIS: Small bowel obstruction CONDITION AT DISCHARGE: Improved. DISPOSITION: Home. MEDICATIONS AT DISCHARGE: He is to resume his pre-admission medications which are aspirin 1/2 of a 325 mg tablet daily, his herbal supplement, a multivitamin daily, and his Breo daily. DIET RESTRICTION: Unrestricted, though I suggested that he chew well, and that he avoid constipating foods such as bananas, rice, applesauce, and cheese. ACTIVITY: Unrestricted. FOLLOWUP INSTRUCTIONS: He will follow up with Dr. Stefanie Hernandez, his primary care physician, in 1 week. He will return to see Doctors Ashish Blood or Abdelrahman as needed. HOSPITAL COURSE: The patient was admitted. He was observed overnight with NG suction. The amount of drainage was minimal. He had a large volume of stool on his post admission x-ray. Large volume enemas were given with spectacular results. He has done well since that time. He is tolerating 1st clear liquids , then a regular meal. I feel he is set to be discharged. I cannot state for certainly does not have a low to moderate grade partial small bowel obstruction. At this point, at least, he is functional. A followup evaluation with a small bowel follow-through may be indicated. /[id number]/MODL MTDD
--- NOTE | 2017-01-25 09:39 | ASDISCHSUM ---
Discharge Information Plan Status:Home with No Needs Medically Cleared to Leave:01/23/2017 Discharge Date:01/24/2017 02:30 PM CM D/C Disposition: ADT D/C Disposition:Home, Routine, Self-Care Projected Discharge Date:01/24/2017 12:00 AM Transportation at D/C: Discharge Delay Reason: Follow-Up Date:01/24/2017 12:00 AM Discharge Slot: Final Diagnosis: Placement Information Patient Contact Information Contact Name:CATALINO Relationship: Address:[address] [place] Work Phone: City:[facility] Phone: [facility]/Zip Code:[place] [address] Email: Financial Information Financial Class: Primary Plan Desc:MEDICARE OUTPATIENT Primary Plan Number:[id number] Secondary Plan Desc:STANDARD LIFE AND ACCIDENT Secondary Plan Number:[id number] Assessment Information [facility] Initial CM Assessment Living Arrangements What is your living Answers: With Spouse arrangement? Who do you live with? Type Of Residence What kind of residence do Answers: House you live in? Discharge Plan Comments Coordination Status Comments Notes: Pt is a 76 y/o man admitted for a SBO. A rehab evaluation consult has been ordered. CM left a msg for Ayala Dailey at [facility] inpatient rehab. CM spoke w/ MALIKA Danielle regarding d/c POC. Anticipates that pt will d/c independent when medically stable w/ supportive . Pt is scheduled to have an x-ray today. CM available for d/c needs. Date Signed: 01/24/2017 11:22 AM Electronically Signed By:ASTRID Wharton Intervention Information Intervention Type:*PRECIOUS-Signed Date of Service:01/24/2017 01:42 PM Patient Type:Observation Staff Member:Ny Shell Hours: Discipline: Severity: Comment:
== END 2017-01-24 14:30 | disposition home or self-care (01) ==
LOC: INTOOBSV 04:20 → F3E 06:25
PROVIDERS: ADMIT Surgery; ATTEND Surgery
PROC: 0D9670Z Drainage of Stomach with Drainage Device, Via Natural or Artificial Opening (ICD-10-PCS; principal; 2017-01-23)
DX: K56.600 Partial intestinal obstruction, unspecified as to cause (principal); F17.210 Nicotine dependence, cigarettes, uncomplicated; J44.9 Chronic obstructive pulmonary disease, unspecified
CPT/HCPCS: 71010; 74020; 74177; G0378; J1170; J1885; J2405; Q9967; 82947-QW; 96374

== ENCOUNTER → 2017-07-13 | Outpatient (CLI) | payer OTHER | LOC: BMCIMAGING 14:11 | PROVIDERS: ATTEND Internal Medicine | DX: J44.9 Chronic obstructive pulmonary disease, unspecified (principal); R91.8 Other nonspecific abnormal finding of lung field; Z72.0 Tobacco use ==

== ENCOUNTER 2018-03-21 10:35 | Observation (INO) | payer OTHER ==
[2018-03-21] MEDS ORDERED: NS 1,000 ML IV ONE (11:01)
--- NOTE | 2018-03-21 11:18 | EDPHY ---
H & P Stated Complaint: ? seizure last night/dizzyness Time Seen by Provider: 03/21/18 11:03 HPI/ROS: HPI: This is a 77-year-old male who presents with Chief Complaint: ? seizure last night/dizziness Location: Body Quality: Shakes Duration: Last night Signs and Symptoms: no shortness of breath at rest, no shortness of breath on exertion, + cough, no chest pain, no palpitations, no lower extremity edema, no wheezing, no orthopnea, no paroxysmal nocturnal dyspnea, no fever, no injury/ trauma, no hemoptysis, no carpal pedal spasms Timing: Lasted 30 sec, resolved Severity: Moderate Context: Patient has a history of COPD not oxygen dependent, presents at the urging his primary care provider with questionable seizure activity that occurred last night around 7:00 p.m. That was witnessed by his . at bedside describes patient sitting in the chair and curling his arms and legs up in a hyperflexed position with shaking generalized pattern that lasted approximately 30 sec. would shake his leg patient was disoriented and then slowly come around. Patient reports that he has similar occurrence that occurred with a coughing episode approximately 1 week ago. No prior history of seizure activity and patient was not postictal. No tongue biting or urinary bowel incontinence. Patient reports that he feels well today. 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 She reports that around January both from sustained a viral illness that she got over an 2 weeks but he has still been"lingering."She reports that he uses his inhaler at night for COPD but is coughing episodes have become more "violent and frequent." Modifying Factors: Regular home medications Comment: ROS: A comprehensive 10 system review of systems is otherwise negative aside from elements mentioned in the history of present illness. MEDICAL/SURGICAL/SOCIAL HISTORY: Medical/Surgical history: PNA, diverticulitis; colectomy-2010;S/P T&A;MACULAR DEGENERATION, COPD Social history: Former smoker, . CONSTITUTIONAL: Nontoxic-appearing elderly white male, talkative, awake and alert, no obvious distress HEENT: Atraumatic and normocephalic, PERRL, EOMI. Nares patent; no rhinorrhea; no nasal mucosal edema. Tympanic membranes clear. Hard of hearing. Oropharynx clear, no exudate and moist pink mucosa. Airway patent. No lymphadenopathy. No meningismus. Cardiovascular: Normal S1/S2, regular rate, regular rhythm, without murmur rub or gallop. PULMONARY/CHEST: Symmetrical and nontender. Clear to auscultation bilaterally with diminished bases. Good air movement. No accessory muscle usage. ABDOMEN: Soft, nondistended, nontender, no rebound, no guarding, no peritoneal signs, no masses or organomegaly. No CVAT. EXTREMITIES: 2/2 pulses, strength 5/5, no deformities, no clubbing, no cyanosis or edema. NEUROLOGICAL: no focal neuro deficits. GCS 15. Speech normal. Normal cerebellar testing. Normal [id number]-[id number]. Normal gipl-ro-hpyw. SKIN: Warm and dry, no erythema. no rash. Good capillary refill. Source: Patient, Family () Exam Limitations: No limitations - Personal History Current Tetanus Diphtheria and Acellular Pertussis (TDAP): Unsure - Medical/Surgical History Hx Asthma: No Hx Chronic Respiratory Disease: Yes Hx Diabetes: No Hx Cardiac Disease: No Hx Renal Disease: No Hx Cirrhosis: No Hx Alcoholism: No Hx HIV/AIDS: No Hx Splenectomy or Spleen Trauma: No Other PMH: PNA, diverticulitis; colectomy-2009;S/P T&A;MACULAR DEGENERATION - Social History Smoking Status: Former smoker Constitutional: Initial Vital Signs Temperature (C) 36.4 C 03/21/18 10:38 Heart Rate 65 03/21/18 10:38 Respiratory Rate 18 03/21/18 10:38 Blood Pressure 144/71 H 03/21/18 10:38 O2 Sat (%) 93 03/21/18 10:38 O2 Delivery Mode Room Air Allergies/Adverse Reactions: Penicillins Allergy (Severe, Verified 03/21/18 10:38) Other-Enter Comments Home Medications: Medication Instructions Recorded Aspirin [Aspirin 325 mg (*)] 162.5 mg PO DAILY 03/19/16 Herbals/Supplements -Info Only 1 ea PO DAILY 03/19/16 Multivitamins [Multivitamin (*)] 0.5 each PO DAILY 03/19/16 Umeclidinium Brm/Vilanterol Tr 1 each IH DAILY 01/23/17 [Anoro Ellipta 62.5-25 Mcg INH] Medical Decision Making - Diagnostics EKG Interpretation: 12 lead EKG: Indication: Seizure activity Rhythm: Normal sinus rhythm, rate of 57 beats per minute [place]: Normal Intervals: Normal QRS: Normal ST segments: Normal INTERPRETATION: Acute ischemic changes The 12 lead EKG was interpreted by myself and with attending Imaging Results: Imaging Impressions Head CT 03/21/18 11:01 Impression: 1. Negative. No acute intracranial hemorrhage, mass, or ischemia. 2. Minimal atrophy and white matter disease similar to March 2016. Findings discussed with Emergency Department physician, Flor Johnson on 2018, 11:31. Chest X-Ray 03/21/18 11:16 Impression: COPD and mild chronic bronchitis, with no new focal infiltrate. ED Course/Re-evaluation: Vital signs reviewed and stable upon arrival. Placed on cardiac care unit nurse. IV access, laboratory studies including ABG and lactic acid, chest x-ray, EKG and head CT scan ordered Given 1 L normal saline 1129: Called by Radiology head CT scan shows no acute intracranial process but does show atrophy and white matter changes. 1158: EKG my read with attending shows no acute ischemic changes, normal sinus rhythm 1215: Labs reviewed. No signs of leukocytosis/anemia/platelet dysfunction/VANDANA/ elevated LFTs/electrolyte imbalance/pancreatitis/ACS/CHF. 1225: Chest x-ray my read shows COPD and mild chronic bronchitis, with no new focal infiltrate. CABG shows 33 pCO2 and 60 pO2 ED decision to consult for admission for new onset seizure activity versus syncope and collapse. Spoke with Marsha who kindly agrees to admit patient under Dr. Gorman. This patient was seen under the supervision of my secondary supervising physician. I evaluated care for this patient with my attending. Discussed this patient with Dr. Zhao who did see the patient. Differential Diagnosis: Seizure including but not limited to electrolyte abnormality, alcohol withdrawal , medication noncompliance, head injury, and breakthrough seizure. - Data Points Laboratory Results: Laboratory Results 03/21/18 11:35 03/21/18 11:35 03/21/18 03/21/18 03/21/18 12:11 11:36 11:35 WBC RBC Hgb Hct MCV MCH MCHC RDW Plt Count MPV Neut % (Auto) Lymph % (Auto) Garrett % (Auto) Eos % (Auto) Baso % (Auto) Nucleat RBC Rel Count Absolute Neuts (auto) Absolute Lymphs (auto) Absolute Monos (auto) Absolute Eos (auto) Absolute Basos (auto) Absolute Nucleated RBC Immature Gran % Immature Gran # Puncture Site RIGHT RADIAL Patient Temperature 35.0 DEGREES DEGREES pCO2 33 mmHg L mmHg (34-38) pO2 60 mmHg L mmHg (65-75) Total CO2 24 mEq/L mEq/L (23-27) ABG pH 7.44 (7.35-7.45) ABG HCO3 23 mEq/L mEq/L (22-26) ABG O2 Saturation 93 % % (92-95) ABG Base Excess -0.9 mEq/L mEq/L (-2.5-2.5) ABG Lactic Acid 1.0 mmol/L mmol/L (0.5-1.6) Sodium 136 mEq/L mEq/L (135-145) Potassium 4.7 mEq/L mEq/L (3.5-5.2) Chloride 107 mEq/L mEq/L (97-110) Carbon Dioxide 25 mEq/l mEq/l (22-31) Anion Gap 4 mEq/L L mEq/L (6-14) BUN 20 mg/dL mg/dL (7-23) Creatinine 1.0 mg/dL mg/dL (0.7-1.3) Estimated GFR > 60 Glucose 98 mg/dL mg/dL (70-100) Calcium 8.9 mg/dL mg/dL (8.5-10.4) Magnesium 2.2 mg/dL mg/dL (1.6-2.3) Total Bilirubin 0.5 mg/dL mg/dL (0.1-1.4) Conjugated Bilirubin 0.1 mg/dL mg/dL (0.0-0.5) Unconjugated Bilirubin 0.4 mg/dL mg/dL (0.0-1.1) AST 24 IU/L IU/L (17-59) ALT 22 IU/L IU/L (21-72) Alkaline Phosphatase 86 IU/L IU/L (38-126) POC Troponin I 0.00 ng/mL ng/mL (0.00-0.08) NT-Pro-B Natriuret Pep 251 pg/mL pg/mL (0-450) Total Protein 6.6 g/dL g/dL (6.3-8.2) Albumin 3.9 g/dL g/dL (3.5-5.0) 03/21/18 11:35 WBC 8.67 10^3/uL 10^3/uL (3.80-9.50) RBC 4.33 10^6/uL L 10^6/uL (4.40-6.38) Hgb 14.0 g/dL g/dL (13.7-17.5) Hct 41.4 % % (40.0-51.0) MCV 95.6 fL fL (81.5-99.8) MCH 32.3 pg pg (27.9-34.1) MCHC 33.8 g/dL g/dL (32.4-36.7) RDW 13.2 % % (11.5-15.2) Plt Count 326 10^3/uL 10^3/uL (150-400) MPV 10.0 fL fL (8.7-11.7) Neut % (Auto) 61.5 % % (39.3-74.2) Lymph % (Auto) 22.4 % % (15.0-45.0) Garrett % (Auto) 12.2 % % (4.5-13.0) Eos % (Auto) 3.2 % % (0.6-7.6) Baso % (Auto) 0.6 % % (0.3-1.7) Nucleat RBC Rel Count 0.0 % % (0.0-0.2) Absolute Neuts (auto) 5.33 10^3/uL 10^3/uL (1.70-6.50) Absolute Lymphs (auto) 1.94 10^3/uL 10^3/uL (1.00-3.00) Absolute Monos (auto) 1.06 10^3/uL H 10^3/uL (0.30-0.80) Absolute Eos (auto) 0.28 10^3/uL 10^3/uL (0.03-0.40) Absolute Basos (auto) 0.05 10^3/uL 10^3/uL (0.02-0.10) Absolute Nucleated RBC 0.00 10^3/uL 10^3/uL (0-0.01) Immature Gran % 0.1 % % (0.0-1.1) Immature Gran # 0.01 10^3/uL 10^3/uL (0.00-0.10) Puncture Site Patient Temperature pCO2 pO2 Total CO2 ABG pH ABG HCO3 ABG O2 Saturation ABG Base Excess ABG Lactic Acid Sodium Potassium Chloride Carbon Dioxide Anion Gap BUN Creatinine Estimated GFR Glucose Calcium Magnesium Total Bilirubin Conjugated Bilirubin Unconjugated Bilirubin AST ALT Alkaline Phosphatase POC Troponin I NT-Pro-B Natriuret Pep Total Protein Albumin Medications Given: Discontinued Medications Sodium Chloride (Ns) 1,000 mls @ 0 mls/hr IV ONCE ONE; Wide Open PRN Reason: Protocol Stop: 03/21/18 11:02 Last Admin: 03/21/18 11:47 Dose: 1,000 mls Point of Care Test Results: Chemistry 03/21/18 11:36 POC Troponin I 0.00 ng/mL ng/mL (0.00-0.08) Departure - Departure Disposition: [facility] Inpatient Acute Clinical Impression: Syncope and collapse, Witnessed seizure-like activity, Chronic obstructive pulmonary disease with hypoxia Condition: Fair
[2018-03-21 11:51] LABS: PLATELET COUNT 326 10^3/uL (150-400)
[2018-03-21] MEDS ORDERED: ONDANSETRON 4 MG/2 ML VIAL IVP PRN (13:04)
[2018-03-21] MEDS ORDERED: ONDANSETRON DISINTEGRATING 4 MG TAB PO PRN (13:04)
[2018-03-21] MEDS ORDERED: ACETAMINOPHEN 325 MG TAB PO PRN (13:04)
--- NOTE | 2018-03-21 13:55 | PDGENHP ---
History and Physical - Chief Complaint Possible seizure, cough, syncope - History of Present Illness This is a 77 y/o male presenting with a one month cough, at first non- productive but within the last 2 weeks, productive with white phlegm. No hemoptysis. His and himself endured a "viral illness" approximately 5 weeks ago and she has recovered but he has not with this lingering cough. He expresses exertional dyspnea, relieved with rest. No orthopnea. Apparently, he has been "sitting on my danni" because he experiences sporadic bouts of dizziness described as the room spinning and the only way to relieve this, he focuses on something and the spinning sensation stops. He cannot create the onset of dizziness. His was not in the room during the evaluation but per ED report, the pt has experienced 2 episodes, one week prior and one yesterday night, of "passing out" for approximately 30 seconds, hyperflexing both his arms and legs and enduring a generalized shaking pattern. He is disoriented when he comes to, he denies body aches, urine or bowel incontinence during this time. He has not had seizures in the past. He was admitted to the hospital approximately one year ago with very similar symptoms of having a coughing fit and syncopal episode from that witnessed by his . In 2009, similar presentation in which syncopal after cough. He denies chest pains, nausea, vomiting, diarrhea, diaphoresis. He does have a history of tobacco abuse. He is being admitted for observation and monitoring. Past Medical/Surgical History 1. COPD 2. Macular degeneration 3. Diverticulitis 4. T&A 5. 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 Started smoking cigarettes at age 26. At peak, would smoke 1 1/2 pack/day. He has continued to smoke but approximately a quarter of a pack. He recently quit 2 weeks ago because he reports he felt better respiratory virk. Drinks 2 glasses of wine/day. History Information - Allergies/Home Medication List Allergies/Adverse Reactions: Penicillins Allergy (Severe, Verified 03/21/18 10:38) Other-Enter Comments Home Medications: Aspirin [Aspirin 325 mg (*)] 162.5 mg PO DAILY 03/19/16 [Last Taken 03/20/18] Herbals/Supplements -Info Only 1 ea PO DAILY 03/19/16 [Last Taken 03/18/16] Multivitamins [Multivitamin (*)] 0.5 each PO DAILY 03/19/16 [Last Taken 03/20/18 ] Umeclidinium Brm/Vilanterol Tr [Anoro Ellipta 62.5-25 Mcg INH] 1 each IH HS 02/27 [Last Taken 03/20/18] Albuterol [Proventil Inhaler HFA (*)] 1 - 2 puffs IH Q4H PRN 03/21/18 [Last Taken Unknown] I have personally reviewed and updated: family history, medical history, social history, surgical history Past Medical History: See HPI list - Surgical History Additional surgical history: See HPI list - Family History Additional family history: Father at age 60 y/o - [place]. Stroke. HTN - Social History Smoking Status: Current some day smoker Tobacco Use: Cigarettes Alcohol Use: Occasionally Drug Use: None Review of Systems Review of Systems: ROS: 10pt was reviewed & negative except for what was stated in HPI & below Constitutional: Reports: malaise, recent illness EENMT: Reports: no symptoms Cardiac: Reports: syncope Respiratory: Reports: cough, shortness of breath (exertional) Gastrointestinal: Reports: no symptoms Genitourinary: Reports: no symptoms Muscolosketal: Reports: no symptoms Skin: Reports: no symptoms Neurological: Reports: no symptoms Hematologic/Lymphatic: Reports: no symptoms Immunologic/Allergy: Reports: other (See allergy list) Physical Exam Physical Exam: Lab data and imaging reviewed Temp Pulse Resp BP Pulse Ox 36.4 C 61 16 132/84 H 93 03/21/18 10:38 03/21/18 11:35 03/21/18 11:35 03/21/18 11:35 03/21/18 11:35 Constitutional: no apparent distress, appears nourished, not in pain Eyes: PERRL, anicteric sclera, EOMI Ears, Nose, Mouth, Throat: moist mucous membranes, ears appear normal, no oral mucosal ulcers, hard of hearing Cardiovascular: regular rate and rhythym, no murmur, rub, or gallop, No edema Peripheral Pulses: 1+: dorsalis-pedis (R) (Radial 2+), dorsalis-pedis (L) ( Radial 2+) Respiratory: reduced air movement (Bilateral lower lobes) Gastrointestinal: normoactive bowel sounds, soft, non-tender abdomen, no palpable masses Genitourinary: no bladder fullness, no bladder tenderness Skin: warm, normal color, no rashes or abrasions, no fluctuance, no induration, No mottled Musculoskeletal: full muscle strength, no muscle tenderness, normal joint ROM, no joint effusions Neurologic: AAOx3, sensation intact bilaterally, CN II-XII Intact Psychiatric: interacting appropriately, not anxious, not encephalopathic, thought process linear Lymph, Heme, Immunologic: no cervical LAD, no supraclavicular LAD Lab Data & Imaging Review 03/21/18 11:35 03/21/18 11:35 WBC 8.67 10^3/uL (3.80-9.50) 03/21/18 11:35 RBC 4.33 10^6/uL (4.40-6.38) L 03/21/18 11:35 Hgb 14.0 g/dL (13.7-17.5) 03/21/18 11:35 Hct 41.4 % (40.0-51.0) 03/21/18 11:35 MCV 95.6 fL (81.5-99.8) 03/21/18 11:35 MCH 32.3 pg (27.9-34.1) 03/21/18 11:35 MCHC 33.8 g/dL (32.4-36.7) 03/21/18 11:35 RDW 13.2 % (11.5-15.2) 03/21/18 11:35 Plt Count 326 10^3/uL (150-400) 03/21/18 11:35 MPV 10.0 fL (8.7-11.7) 03/21/18 11:35 Neut % (Auto) 61.5 % (39.3-74.2) 03/21/18 11:35 Lymph % (Auto) 22.4 % (15.0-45.0) 03/21/18 11:35 [place] % (Auto) 12.2 % (4.5-13.0) 03/21/18 11:35 Eos % (Auto) 3.2 % (0.6-7.6) 03/21/18 11:35 Baso % (Auto) 0.6 % (0.3-1.7) 03/21/18 11:35 Nucleat RBC Rel Count 0.0 % (0.0-0.2) 03/21/18 11:35 Absolute Neuts (auto) 5.33 10^3/uL (1.70-6.50) 03/21/18 11:35 Absolute Lymphs (auto) 1.94 10^3/uL (1.00-3.00) 03/21/18 11:35 Absolute Monos (auto) 1.06 10^3/uL (0.30-0.80) H 03/21/18 11:35 Absolute Eos (auto) 0.28 10^3/uL (0.03-0.40) 03/21/18 11:35 Absolute Basos (auto) 0.05 10^3/uL (0.02-0.10) 03/21/18 11:35 Absolute Nucleated RBC 0.00 10^3/uL (0-0.01) 03/21/18 11:35 Immature Gran % 0.1 % (0.0-1.1) 03/21/18 11:35 Immature Gran # 0.01 10^3/uL (0.00-0.10) 03/21/18 11:35 Puncture Site RIGHT RADIAL 03/21/18 12:11 Patient Temperature 35.0 DEGREES 03/21/18 12:11 pCO2 33 mmHg (34-38) L 03/21/18 12:11 pO2 60 mmHg (65-75) L 03/21/18 12:11 Total CO2 24 mEq/L (23-27) 03/21/18 12:11 ABG pH 7.44 (7.35-7.45) 03/21/18 12:11 ABG HCO3 23 mEq/L (22-26) 03/21/18 12:11 ABG O2 Saturation 93 % (92-95) 03/21/18 12:11 ABG Base Excess -0.9 mEq/L (-2.5-2.5) 03/21/18 12:11 ABG Lactic Acid 1.0 mmol/L (0.5-1.6) 03/21/18 12:11 Sodium 136 mEq/L (135-145) 03/21/18 11:35 Potassium 4.7 mEq/L (3.5-5.2) 03/21/18 11:35 Chloride 107 mEq/L (97-110) 03/21/18 11:35 Carbon Dioxide 25 mEq/l (22-31) 03/21/18 11:35 Anion Gap 4 mEq/L (6-14) L 03/21/18 11:35 BUN 20 mg/dL (7-23) 03/21/18 11:35 Creatinine 1.0 mg/dL (0.7-1.3) 03/21/18 11:35 Estimated GFR > 60 03/21/18 11:35 Glucose 98 mg/dL (70-100) 03/21/18 11:35 Calcium 8.9 mg/dL (8.5-10.4) 03/21/18 11:35 Magnesium 2.2 mg/dL (1.6-2.3) 03/21/18 11:35 Total Bilirubin 0.5 mg/dL (0.1-1.4) 03/21/18 11:35 Conjugated Bilirubin 0.1 mg/dL (0.0-0.5) 03/21/18 11:35 Unconjugated Bilirubin 0.4 mg/dL (0.0-1.1) 03/21/18 11:35 AST 24 IU/L (17-59) 03/21/18 11:35 ALT 22 IU/L (21-72) 03/21/18 11:35 Alkaline Phosphatase 86 IU/L (38-126) 03/21/18 11:35 POC Troponin I 0.00 ng/mL (0.00-0.08) 03/21/18 11:36 NT-Pro-B Natriuret Pep 251 pg/mL (0-450) 03/21/18 11:35 Total Protein 6.6 g/dL (6.3-8.2) 03/21/18 11:35 Albumin 3.9 g/dL (3.5-5.0) 03/21/18 11:35 Assessment & Plan Plan: 77 y/o male presenting with what appears to be syncopal episodes d/t vasovagally from intense coughing fits, witnessing on two separate occasions what appeared to be seizure-like with generalized body shaking and disorientation upon waking. 1. Syncopal episodes, possible seizures?: EKG SR, left anterior fascicular block unchanged from 03/19/16. Echocardiogram performed in December 2016 revealing normal LV size with LVEF 60%, normal wall. Mild and trivial diastolic dysfunction, bi-atrial enlargement, MR w/o prolapse -Neurology consulted and aware: spoke with Dr. Ervin Art. Will order Brain MRI w/o contrast. If pt still in hospital tomorrow, he will evaluate the pt. Otherwise, neurology is happy to see him as outpatient. Pt needs to be placed on driving precautions for 90 days. -Head CT revealed no acute intracranial abnormalities or hemorrhage -Cont tele and pulse ox monitoring -Repeat echo pending to ensure no significant changes or abnormalities occurred since 2016 -His electrolytes look within normal; will repeat BMP and CBC tomorrow -Seizure precautions implemented; neuro checks Qshift, seizure assessment Qshift 2. Cough: I suspect the intensity of his coughing produces these syncopal episodes. Possibly bronchitis. No evidence of infection on CXR. -Lucy leyva -Respiratory PCR pending -Anti-emetics PRN -Tobacco abuse contributor 3. Tobacco abuse: counseled pt on tobacco cessation. He reports he has stopped 2 weeks ago because he feels better and coughs less w/o it. 4. COPD: he may continue his home inhalers during his stay in the hospital. He is not chronically on supplemental oxygen. Diet: Regular Code: Full VTE ppx: SCDs, Lovenox Dispo: Admit to obs
[2018-03-21] MEDS ORDERED: ALBUTEROL 60 PUFFS/8 GM MDI IH PRN (14:29)
--- NOTE | 2018-03-21 14:57 | ECHO ---
[email or web address] [address] [address] Main: [phone] Fax: Transthoracic Echocardiogram Name: JACK HALL MR#: [id number] Study Date: 03/21/2018 Study Time: 01:48 PM Date of : 1940 Age: 77 year(s) Height: 175.3 cm (69 in.) Weight: 77.11 kg (170 lb.) BSA: 1.93 m2 Gender: Male Examination: Echo with Agitated Saline Indication: seizure vs syncope Image Quality: Contrast: I.V. 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 No LV hypertrophy. Normal global systolic LV function. EF is 59 %. No regional wall motion abnormality. Normal size right ventricle. Normal RV function. The left atirum is borderline dilated. An agitated saline study was performed and was negative at rest and positive with Valsalva maneuver. The right atrium is normal in size. Trivial tricuspid valve regurgitation. Pulmonary artery pressure is not obtained due to inadequate TR jet. No pericardial effusion. Measurements: Chambers Valvular Assessment AV/MV Valvular Assessment TV/PV Normal Normal Normal Name Value Range Name Value Range Name Value Range Ao Carmelita (MM): 3.7 cm (2.2 cm-3.7 AV Vmax: 1.19 m/s (1 m/s-1.7 PV Vmax: 0.76 m/s (0.6 m/s-0.9 cm) m/s) m/s) IVSd (2D): 1.0 cm (0.6 cm-1.1 AV maxP mmHg ( - ) PV PGmax: 2 mmHg ( - ) cm) LVOT Vmax: 0.96 m/s (0.7 m/s-1.1 LVDd (2D): 3.8 cm (4.2 cm-5.9 m/s) cm) JEOVANY (Vmax): 2.8 cm2 ( - ) LVDs (2D): 2.3 cm (2.1 cm-4 MV E Vmax: 0.75 m/s ( - ) cm) MV A Vmax: 0.96 m/s ( - ) LVPWd (2D): 0.9 cm (0.6 cm-1 MV E/A: 0.78 ( - ) cm) LVOTd 2.1 cm 2.1 cm mm Patient: JACK HALL Study Date: 03/21/2018 Page 1 of 2 01:48 PM LVEF (BP): 59 % (>=55 %) RVDd(2D): 3.4 cm (1.9 cm-3.8 cmmm) Continued Measurements: Chambers Valvular Assessment AV/MV Name Value Name Value LADs: 2.9 cm MV DecTime: 208 m/s LADs Lon.8 cm MV E/E' Septal: 13.00 LA Area: 19.2 cm2 MV E/E' Lateral: 10.00 LA Volume: 65 ml LA Volume Index: 33.7 ml/m2 TAPSE: 2.5 cm RA Area: 16.7 cm2 Additional Vessels Name Value Ao Ascendin.1 cm Findings: Left Ventricle: Normal size left ventricle. No LV hypertrophy. Normal global systolic LV function. EF is 59 %. No regional wall motion abnormality. Right Ventricle: Normal size right ventricle. Normal RV function. Left Atrium: The left atirum is borderline dilated. An agitated saline study was performed and was negative at rest and positive with Valsalva maneuver. Right Atrium: The right atrium is normal in size. Mitral Valve: There is mild thickening of the mitral valve leaflets. Mild mitral annular calcification. There is no significant mitral valve regurgitation. No mitral stenosis is present. Aortic Valve: The aortic valve is tri-leaflet. Mildly calcified non-coronary leaflet. Trivial aortic valve regurgitation. No aortic valve stenosis is present. Tricuspid Valve: The tricuspid valve is normal in appearance and function. Trivial tricuspid valve regurgitation. Pulmonary artery pressure is not obtained due to inadequate TR jet. Pulmonic Valve: The pulmonic valve is normal in appearance and function. Mild pulmonic valve regurgitation is noted. Aorta: Normal size aortic root measuring 3.7 cm. Normal size ascending aorta measuring 3.1 cm. IVC: Normal size and course of the IVC. Pericardium: No pericardial effusion. (No Signature Object) Patient: JACK HALL Study Date: 03/21/2018 Page 2 of 2 01:48 PM [id number]
[2018-03-21] MEDS: BENZONATATE 100 MG CAP PO PRN (16:20)
--- NOTE | 2018-03-21 16:36 | HOSPPROG ---
Hospitalist Progress Note Assessment/Plan: patient seen/examined/discussed w SCHEDULE HANGER [place] likely vasovagal syncope from cough suppression. seizure like activity can be sen w VV. echo, ekg, trop normal. no known cad. no seizure RF's 1. telemetry overnight 2. chest CT w contrast given chronic cough, smoker 3. await MRI Objective: Vital Signs Temp Pulse Resp BP Pulse Ox 36.6 C 59 L 16 124/68 H 95 03/21/18 16:26 03/21/18 16:26 03/21/18 16:26 03/21/18 16:26 03/21/18 16:26 03/20/18 03/21/18 03/22/18 05:59 05:59 05:59 Intake Total 1000 Balance 1000 ICD10 Worksheet Patient Problems: Problems Problem Status Onset Chronic obstructive pulmonary disease with hypoxia Acute Syncope and collapse Acute Witnessed seizure-like activity Acute Abdominal pain Acute SBO (small bowel obstruction) Acute Syncope, vasovagal Acute
[2018-03-21] MEDS ORDERED: IOPAMIDOL (ISOVUE 370) 100 ML BTL IV ONE (17:20)
[2018-03-21] MEDS ORDERED: Umeclidinium Brm/Vilanterol Tr [Anoro Ellipta 62.5-25 Mcg Inh] IH SCH (21:00)
[2018-03-21] MEDS ORDERED: ENOXAPARIN 40 MG/0.4 ML SYR SC SCH (21:00)
[2018-03-22 05:20] LABS: PLATELET COUNT 307 10^3/uL (150-400)
[2018-03-22] MEDS: BENZONATATE 100 MG CAP PO PRN (09:25)
[2018-03-22] MEDS ORDERED: FLUTICASONE HFA 220 MCG MDI IH SCH (09:30)
[2018-03-22] MEDS ORDERED: ASPIRIN 325 MG TAB PO SCH (09:30)
--- NOTE | 2018-03-22 10:36 | GCON ---
NEUROLOGY CONSULT DATE OF CONSULTATION: 03/22/2018 REFERRING PHYSICIAN: Merry Acuna NP CHIEF COMPLAINT: Syncope. HISTORY OF PRESENT ILLNESS: The patient is a very pleasant 77-year-old gentleman with a significant history of smoking and COPD. He had an episode of tussive syncope in a previous admission. Two nights ago, around 7 p.m., he was sitting on the couch, and he felt his airway get blocked by a large body of phlegm. He went into a severe coughing spell and briefly lost consciousness, with convulsive movements, and then regained consciousness. There was no tonic activity. There was no tongue injury or significant postictal mental status changes. No incontinence. He was admitted for observation and had an MRI brain, which showed no acute infarct or mass lesions. He does have some microvascular changes consistent with his medical history. REVIEW OF SYSTEMS: A 10-point review of systems is only pertinent to the HPI. For past medical history, social history, family history, home medications, and allergies, see the history and physical by Ms. Harika Acuna. PHYSICAL EXAM: VITAL SIGNS: 133/74 blood pressure, 36.8 temperature, heart rate 60s to 70s. GENERAL: No acute distress, very pleasant gentleman. NEUROLOGIC: Higher mental function: Awake and alert. No aphasia. Cranial nerve exam normal 2 through 7 and 12. Motor exam: Normal strength, tone, and reflexes throughout. Sensory exam is normal. Coordination is normal in upper and lower extremities. IMPRESSION/PLAN: 1. Tussive convulsive syncope. 2. Emphysema Overall, the patient's clinical history is consistent with a tussive convulsive syncope. Discussed at length with the patient. MRI brain shows no acute abnormalities. He has no epilepsy risk factors. I asked the patient to go on driving restrictions until he follows up with Dr. Villela, his potato bucker, to make further recommendations. He is agreeable. No further recommendations. We will sign off and follow up as needed. Please do not hesitate to call if there are any questions or changes in neurologic status with this patient. Seventy total minutes floor time, over 50% in counseling and coordination of care. /[id number]/MODL MTDD
--- NOTE | 2018-03-22 10:50 | ASMTLACE ---
LACE Length of stay for Answers: 2 days current admission Acuity / Level of Answers: No Care: Did the patient have an inpatient admission? Comorbidities - select Answers: Chronic pulmonary disease all that apply Other Notes: Diverticulitis # of Emergency department Answers: 1-2 visits in the last 6 months Score: 6 Date Signed: 03/22/2018 10:49 AM Electronically Signed By:Jocy Tran RN
[2018-03-22 15:27] VITALS: BP 147/77
--- NOTE | 2018-03-22 18:25 | GDS ---
DISCHARGE DIAGNOSES: 1. Tussive convulsive syncope. 2. Chronic obstructive pulmonary disease. 3. Peripheral vertigo. HISTORY: The patient is a 77-year-old male with COPD who presents with a persistent cough. He and h is sustained a viral illness that she recovered from, but he continues to have a persistent coug h 5 weeks later. He also developed new onset vertigo that is reproducible with head movement. He pr esented to the hospital with syncope which appeared to occur mostly after coughing although he also h as difficulties with vertigo. He was admitted for evaluation which was relatively unremarkable. He had MRI of the brain that was negative. CT scan of the chest was negative except for COPD. Echocard iogram was negative. Telemetry monitoring was negative. He was seen in consultation with Dr. Art of neurology who felt that this seizure-like activity was tussive convulsive syncope. His only recomme ndations were driving restrictions until his pulmonary status improved. His respiratory PCR panel was negative. I suspect he has a persistent cough due to his underlying [place] PD. He is on an anticholinergic and long-acting beta agonist inhaler. I added a steroid inhaler in the form of Flovent. Physical and occupational therapy saw him prior to discharge. He definitely has peripheral vertigo a s evidenced by recurrence of symptoms with movement of his head. They recommended outpatient vestibu lar therapy which was ordered. DISCHARGE MEDICATIONS: Please see computer record for full detailed list. New medications: Flovent 220 one puff twice daily. ADDITIONAL DISCHARGE INSTRUCTIONS: 1. No driving until the cough is resolved. 2. Follow up with Dr. Villela of pulmonary medicine. 3. Follow up with Dr. Hernandez, primary care. 4. Outpatient vestibular therapy. Greater than 30 minutes' time was spent arranging this discharge. Patient was seen and examined by natalee pearson on the day of discharge. /[id number]/MODL
== END 2018-03-22 16:28 | disposition home or self-care (01) ==
LOC: F3N 15:50
PROVIDERS: ADMIT Internal Medicine; ATTEND Internal Medicine
DX: R55 Syncope and collapse (principal); R05 Cough; J44.9 Chronic obstructive pulmonary disease, unspecified; Z87.891 Personal history of nicotine dependence; E86.9 Volume depletion, unspecified; H81.399 Other peripheral vertigo, unspecified ear; H35.30 Unspecified macular degeneration
CPT/HCPCS: 70450; 70551; 71046; 71260; 93306; 96360; 96372; 97116; 97161; 97165; 99285; G0378; J1650; Q9967; 84484-ER

== ENCOUNTER 2018-05-29 22:08 | Observation (INO) | payer OTHER ==
[2018-05-29] MEDS ORDERED: NS 1,000 ML IV ONE (22:24)
--- NOTE | 2018-05-29 22:24 | EDPHY ---
H & P Stated Complaint: PASSED OUT PER , ETOH, PT DENIES NEEDS OT PAIN Source: Patient, Family Exam Limitations: Intoxication - Personal History Current Tetanus/Diphtheria Vaccine: Unsure Current Tetanus Diphtheria and Acellular Pertussis (TDAP): Unsure - Medical/Surgical History Hx Asthma: No Hx Chronic Respiratory Disease: Yes Hx Diabetes: No Hx Cardiac Disease: No Hx Renal Disease: No Hx Cirrhosis: No Hx Alcoholism: No Hx HIV/AIDS: No Hx Splenectomy or Spleen Trauma: No Other PMH: PNA, diverticulitis; colectomy-2009;S/P T&A;MACULAR DEGENERATION, COPD - Social History Smoking Status: Current every day smoker Time Seen by Provider: 05/29/18 22:20 HPI/ROS: HPI: This is a 77-year-old male who presents with Chief Complaint: PASSED OUT PER , ETOH, PT DENIES NEEDS OR PAIN Location: Head Quality: Syncope and collapse Duration: 30 min prior to arrival Signs and Symptoms: no shortness of breath at rest, no shortness of breath on exertion, no cough, no chest pain, no palpitations, no lower extremity edema, no wheezing, no orthopnea, no paroxysmal nocturnal dyspnea, no fever, no injury/ trauma, no hemoptysis, no carpal pedal spasms, no fever Timing: Acute, resolved Severity: Moderate Context: Patient was at home when his heard a loud Bang in the kitchen. Patient was lying on his back. Patient reports that he was walking to the kitchen and then remembers his standing over him. reports that she called his name and he "quickly came to." Patient reports that over the last few months he has had increased dizziness and has been told "that is from his inner ears." Patient reports that he did have a marker eat at dinner this evening. Denies any headache, room spinning, fever, chest pain, shortness of breath. No recent medication changes. Denies drug use. Modifying Factors: None Comment: ROS: A comprehensive 10 system review of systems is otherwise negative aside from elements mentioned in the history of present illness. MEDICAL/SURGICAL/SOCIAL HISTORY: Medical history: PNA, diverticulitis; MACULAR DEGENERATION, COPD Surgical history:colectomy-2009; S/P T&A Social history: Current every day smoker, retired, . CONSTITUTIONAL: Well-developed, well-nourished, well-appearing elderly white male, at bedside, awake and alert, no obvious distress HEENT: Atraumatic and normocephalic, PERRL, EOMI. Nares patent; no rhinorrhea; no nasal mucosal edema. Tympanic membranes clear. Oropharynx clear, no exudate and moist pink mucosa. Airway patent. No lymphadenopathy. No meningismus. No carotid bruits. NECK: supple, mild midline tenderness, flexion 45 degrees, extension 45 degrees , right and left lateral flexion 45 degrees. Cardiovascular: Normal S1/S2, regular rate, regular rhythm, without murmur rub or gallop. PULMONARY/CHEST: Symmetrical and nontender. Clear to auscultation bilaterally. Good air movement. No accessory muscle usage. ABDOMEN: Soft, protuberant, nondistended, nontender, no rebound, no guarding, no peritoneal signs, no masses or organomegaly. No CVAT. BACK: No midline tenderness, no paraspinous spasm, deep tendon reflexes 2/2, no pain with straight leg raise EXTREMITIES: 2/2 pulses, strength 5/5, no deformities, no clubbing, no cyanosis or edema. NEUROLOGICAL: no focal neuro deficits. GCS 15. Cranial nerves 2-12 grossly intact. Speech normal. Normal [id number]. Normal [id number]. Normal Romberg testing. SKIN: Warm and dry, pallor, no erythema. no rash. Good capillary refill. (Flor Johnson) Constitutional: Initial Vital Signs Temperature (C) 36.6 C 05/29/18 22:17 Heart Rate 75 05/29/18 22:17 Respiratory Rate 18 05/29/18 22:17 Blood Pressure 131/75 H 05/29/18 22:17 O2 Sat (%) 96 05/29/18 22:17 O2 Delivery Mode Room Air Allergies/Adverse Reactions: Penicillins Allergy (Severe, Verified 05/29/18 22:19) Other-Enter Comments Home Medications: Medication Instructions Recorded Aspirin [Aspirin 325 mg (*)] 162.5 mg PO DAILY 03/19/16 Herbals/Supplements -Info Only 1 ea PO DAILY 03/19/16 Multivitamins [Multivitamin (*)] 0.5 each PO DAILY 03/19/16 Umeclidinium Brm/Vilanterol Tr 1 each IH HS 01/23/17 [Anoro Ellipta 62.5-25 Mcg INH] Albuterol [Proventil Inhaler HFA 1 - 2 puffs IH Q4H PRN 03/21/18 (*)] Fluticasone Hfa 220 Mcg [Flovent 1 puffs IH BID #1 mdi 03/22/18 220 MCG Hfa MDI (*)] Medical Decision Making - Diagnostics Imaging Results: Imaging Impressions Cervical Spine CT 05/29/18 22:25 Impression: 1. No definite fracture. 2. Multilevel severe degenerative disease and facet arthropathy worst from C3- C4 through C6-C7 resulting in multilevel moderate central canal stenosis and moderate to severe bilateral neural foraminal stenosis as described above. 3.If there is persistent pain or neurological deficit, recommend MR cervical spine and consider flexion and extension views, if clinically indicated. Findings and recommendations discussed with Emergency Department physician, Flor Johnson PAC at 23:00 hour, 05/29/2018. Final report concurs with initial preliminary interpretation. Head CT 05/29/18 22:25 Impression: 1. Moderate atrophy. 2. No acute hemorrhage, hydrocephalus, or mass effect. 3. Cerebrovascular atherosclerosis. 4. No definite acute infarct. 5. Moderate microvascular ischemic gliosis. 6. Old left basal ganglia infarct. 7. Moderate left maxillary sinusitis. Findings and recommendations discussed with Emergency Department physician, Flor Johnson PAC at 22:50 hour, 05/29/2018. Final report concurs with initial preliminary interpretation. ED Course/Re-evaluation: Vital signs reviewed and stable upon arrival. Placed on bulk loader. EKG, IV access, laboratory studies, head CT, cervical CT ordered Based on nexus protocol of age greater than 65 years old, head CT ordered Patient has mild midline tenderness, cervical CT ordered Given 1 L normal saline 2245: EKG my read shows normal sinus rhythm with left anterior fascicular block but no acute ischemic changes, no arrhythmias, no heart block. 2245: Notified by tech that: trop 0.01 2305: Notified by Radiology that head CT scan shows no acute intracranial process. Does show left maxillary sinusitis. P.o. Azithromycin given. 0: Called by Radiology that cervical CT scan shows severe degenerative disc disease but no fracture, dislocation. 2310: D-dimer elevated; CTA chest ordered. ETOH=48. Labs reviewed. No signs of leukocytosis/anemia/platelet dysfunction/ VANDANA/elevated LFTs/electrolyte imbalance/pancreatitis. 0048: CTA chest shows no aortic aneurysm or dissection, no pulmonary embolism, extensive centrilobular emphysema, small infiltrate within the right middle lobe. Blood cultures ordered given IV Rocephin and Zithromax ED decision to consult for admission for syncope and collapse, left maxillary sinusitis, community-acquired pneumonia This patient was seen under the supervision of my secondary supervising physician. I evaluated care for this patient with attending. (Flor Johnson) PHYSICIAN DOCUMENTATION: The patient was evaluated and managed by the Physician Shaving Machine Operator. My co- signature indicates that I have reviewed this chart and I agree with the findings and plan of care as documented. I am the secondary supervising physician. (Jeanne Kang) Differential Diagnosis: Syncope including but not limited to vasovagal syncope, arrhythmia, dehydration , and blood loss. (Flor Johnson) - Data Points Laboratory Results: Laboratory Results 05/29/18 22:30 05/29/18 22:30 05/29/18 05/29/18 05/29/18 22:33 22:30 22:30 WBC RBC Hgb Hct MCV MCH MCHC RDW Plt Count MPV Neut % (Auto) Lymph % (Auto) [place] % (Auto) Eos % (Auto) Baso % (Auto) Nucleat RBC Rel Count Absolute Neuts (auto) Absolute Lymphs (auto) Absolute Monos (auto) Absolute Eos (auto) Absolute Basos (auto) Absolute Nucleated RBC Immature Gran % Immature Gran # PT 12.1 SEC SEC (12.0-15.0) INR 0.93 (0.83-1.16) APTT 29.5 SEC SEC (23.0-38.0) D-Dimer 0.81 ug/mLFEU H ug/mLFEU (0.00-0.50) Sodium 140 mEq/L mEq/L (135-145) Potassium 4.3 mEq/L mEq/L (3.5-5.2) Chloride 102 mEq/L mEq/L (97-110) Carbon Dioxide 25 mEq/l mEq/l (22-31) Anion Gap 13 mEq/L mEq/L (6-14) BUN 20 mg/dL mg/dL (7-23) Creatinine 1.1 mg/dL mg/dL (0.7-1.3) Estimated GFR > 60 Glucose 89 mg/dL mg/dL (70-100) Calcium 9.7 mg/dL mg/dL (8.5-10.4) Total Bilirubin 0.5 mg/dL mg/dL (0.1-1.4) Conjugated Bilirubin 0.4 mg/dL mg/dL (0.0-0.5) Unconjugated Bilirubin 0.1 mg/dL mg/dL (0.0-1.1) AST 30 IU/L IU/L (17-59) ALT 34 IU/L IU/L (21-72) Alkaline Phosphatase 83 IU/L IU/L (38-126) POC Troponin I 0.01 ng/mL ng/mL (0.00-0.08) Total Protein 7.7 g/dL g/dL (6.3-8.2) Albumin 4.5 g/dL g/dL (3.5-5.0) Ethyl Alcohol 48 mg/dL H mg/dL (0-10) 05/29/18 22:30 WBC 9.22 10^3/uL 10^3/uL (3.80-9.50) RBC 5.02 10^6/uL 10^6/uL (4.40-6.38) Hgb 16.4 g/dL g/dL (13.7-17.5) Hct 47.9 % % (40.0-51.0) MCV 95.4 fL fL (81.5-99.8) MCH 32.7 pg pg (27.9-34.1) MCHC 34.2 g/dL g/dL (32.4-36.7) RDW 13.4 % % (11.5-15.2) Plt Count 405 10^3/uL H 10^3/uL (150-400) MPV 9.5 fL fL (8.7-11.7) Neut % (Auto) 63.3 % % (39.3-74.2) Lymph % (Auto) 23.9 % % (15.0-45.0) [place] % (Auto) 8.7 % % (4.5-13.0) Eos % (Auto) 2.9 % % (0.6-7.6) Baso % (Auto) 0.8 % % (0.3-1.7) Nucleat RBC Rel Count 0.0 % % (0.0-0.2) Absolute Neuts (auto) 5.84 10^3/uL 10^3/uL (1.70-6.50) Absolute Lymphs (auto) 2.20 10^3/uL 10^3/uL (1.00-3.00) Absolute Monos (auto) 0.80 10^3/uL 10^3/uL (0.30-0.80) Absolute Eos (auto) 0.27 10^3/uL 10^3/uL (0.03-0.40) Absolute Basos (auto) 0.07 10^3/uL 10^3/uL (0.02-0.10) Absolute Nucleated RBC 0.00 10^3/uL 10^3/uL (0-0.01) Immature Gran % 0.4 % % (0.0-1.1) Immature Gran # 0.04 10^3/uL 10^3/uL (0.00-0.10) PT INR APTT D-Dimer Sodium Potassium Chloride Carbon Dioxide Anion Gap BUN Creatinine Estimated GFR Glucose Calcium Total Bilirubin Conjugated Bilirubin Unconjugated Bilirubin AST ALT Alkaline Phosphatase POC Troponin I Total Protein Albumin Ethyl Alcohol Medications Given: Sodium Chloride (Ns) 1,000 mls @ 100 mls/hr IV CONT JEREMIAH Stop: 05/30/18 11:29 Last Admin: 05/30/18 02:18 Dose: 1,000 mls Ondansetron HCl (Zofran) 4 mg IVP Q4HRS PRN PRN Reason: Nausea/Vomiting, Can't Take PO Stop: 11/26/18 01:29 Last Admin: 05/30/18 02:16 Dose: 4 mg Discontinued Medications Sodium Chloride (Ns) 1,000 mls @ 0 mls/hr IV ONCE ONE; Wide Open PRN Reason: Protocol Stop: 05/29/18 22:25 Last Admin: 05/29/18 23:01 Dose: 1,000 mls Azithromycin 500 mg/ Dextrose 255 mls @ 255 mls/hr IV EDNOW ONE PRN Reason: Protocol Stop: 05/30/18 01:44 Last Admin: 05/30/18 01:24 Dose: 255 mls Cefepime HCl 1 gm/ Sodium (Chloride) 50 mls @ 100 mls/hr IV EDNOW ONE PRN Reason: Protocol Stop: 05/30/18 01:14 Last Admin: 05/30/18 01:39 Dose: Not Given Ceftriaxone Sodium/Dextrose (Rocephin 1 Gm (Premix)) 50 mls @ 100 mls/hr IV EDNOW ONE PRN Reason: Protocol Stop: 05/30/18 01:27 Last Admin: 05/30/18 01:20 Dose: 50 mls Point of Care Test Results: Chemistry 05/29/18 22:33 POC Troponin I 0.01 ng/mL ng/mL (0.00-0.08) Departure - Departure Disposition: [facility] Inpatient Acute Clinical Impression: Syncope and collapse, Degenerative disc disease, cervical, History of cerebral infarction CAP (community acquired pneumonia) Qualifiers: Laterality: right Lung location: middle lobe of lung Qualified Code(s): J18.1 - Lobar pneumonia, unspecified organism Sinusitis, acute Qualifiers: Sinusitis location: maxillary Recurrence: non-recurrent Qualified Code(s): J01.00 - Acute maxillary sinusitis, unspecified Condition: Fair
[2018-05-29 22:38] LABS: PLATELET COUNT 405 10^3/uL (150-400)
[2018-05-29 22:46] LABS: INR 0.93 (0.83-1.16); PROTIME(PATIENT) 12.1 SEC (12.0-15.0)
[2018-05-29] MEDS ORDERED: IOPAMIDOL (ISOVUE 370) 100 ML BTL IV ONE (23:17)
[2018-05-30] MEDS ORDERED: AZITHROMYCIN IV 500 MG in D5W 250 ML IV ONE (00:45)
[2018-05-30] MEDS ORDERED: CEFEPIME HCL 1 GM in NS 50 ML IV ONE (00:45)
[2018-05-30] MEDS ORDERED: ONDANSETRON 4 MG/2 ML VIAL IVP PRN (01:30)
[2018-05-30] MEDS ORDERED: NS 1,000 ML IV SCH (01:30)
[2018-05-30] MEDS ORDERED: ONDANSETRON DISINTEGRATING 4 MG TAB PO PRN (01:30)
[2018-05-30] MEDS ORDERED: ACETAMINOPHEN 325 MG TAB PO PRN (01:30)
[2018-05-30 05:04] LABS: PLATELET COUNT 350 10^3/uL (150-400)
--- NOTE | 2018-05-30 05:32 | CPEKG ---
Test Reason : OPEN Blood Pressure : / mmHG Vent. Rate : 079 BPM Atrial Rate : 077 BPM P-R Int : 112 ms QRS Dur : 093 ms QT Int : 372 ms P-R-T Axes : 016 -80 054 degrees QTc Int : 427 ms Sinus rhythm Left anterior fascicular block Confirmed by Jeanne Kang ([id number]) on 05/30/2018 5:31:55 AM Referred By: Jeanne Kang Confirmed By:Jeanne Kang
[2018-05-30] MEDS ORDERED: IPRATROPIUM/ALBUTEROL 3 ML DEYVIAL IH PRN (07:43)
--- NOTE | 2018-05-30 08:03 | PDGENHP ---
History and Physical - Chief Complaint Syncope, dizziness - History of Present Illness Source-patient provides history appears reliable. EMR was reviewed and case discussed with ED provider. HPI - pleasant 77-year-old gentleman with past medical history significant for COPD, continued tobacco abuse, macular degeneration, hx diverticulitis, BPPV who presents emergency department today following syncopal episode at home. Patient was in the kitchen at home this evening when his heard a loud Bang. She found her unresponsive on the floor. He came to within a few seconds of her calling him. Patient reports that he has had lightheadedness since March when he was admitted to the hospital. Patient did undergo CT and MRI which was nondiagnostic for any acute CVA. Patient subsequently followed up with an wood grinder operator to diagnose the patient with BPPV. He subsequently went to physical therapy and underwent Christine maneuver with success. His symptoms have recurred intermittently. In the last several weeks they have recurred. Patient has been experiencing vertigo. He denies any fevers, chills, cough, shortness breath, chest pain, nausea vomiting. History Information - Allergies/Home Medication List Allergies/Adverse Reactions: Penicillins Allergy (Severe, Verified 05/29/18 22:19) Other-Enter Comments Home Medications: Aspirin [Aspirin 325 mg (*)] 162.5 mg PO DAILY 03/19/16 [Last Taken 03/20/18] Herbals/Supplements -Info Only 1 ea PO DAILY 03/19/16 [Last Taken 03/18/16] Multivitamins [Multivitamin (*)] 0.5 each PO DAILY 03/19/16 [Last Taken 03/20/18 ] Umeclidinium Brm/Vilanterol Tr [Anoro Ellipta 62.5-25 Mcg INH] 1 each IH HS 02/27 [Last Taken 03/20/18] Albuterol [Proventil Inhaler HFA (*)] 1 - 2 puffs IH Q4H PRN 03/21/18 [Last Taken Unknown] I have personally reviewed and updated: family history, medical history, social history, surgical history - Past Medical History Additional medical history: COPD, continued tobacco abuse, S pneumonia, SBO, macular degeneration, diverticulitis, isolated seizure in March 2018 not on medications - Surgical History Additional surgical history: Tonsillectomy adenoidectomy. Colectomy 2009 - Family History Additional family history: Father at age 60 y/o - [place]. Stroke. HTN - Social History Smoking Status: Current every day smoker Tobacco Use: Cigarettes (Patient reports he has cut back down to less than half pack per day. He has a history of smoking up to 1.5 packs per day since the age of 26. ) Alcohol Use: Occasionally (Patient drinks 2 glasses of wine daily) Drug Use: None Additional social history: Patient is lives with his . Cor status- full. Review of Systems Review of Systems: ROS: 10pt was reviewed & negative except for what was stated in HPI & below Physical Exam Physical Exam: Selected Entries 05/29/18 22:17 Heart Rate 75 Respiratory 18 Rate O2 Sat (%) 96 Temperature (C) 36.6 C Blood Pressure 131/75 H Mean Arterial 93 Pressure (MAP) O2 Delivery Room Air Mode Temperature Oral Source Temp Pulse Resp BP Pulse Ox 36.8 C 69 16 130/85 H 96 05/30/18 04:00 05/30/18 04:00 05/30/18 04:00 05/30/18 04:00 05/30/18 04:00 O2 (L/minute) 2 Constitutional: no apparent distress, appears nourished, not in pain, chronically ill appearing, other (NAD. Pleasant elderly gentle is lying quietly in bed. Appears fatigued.) Eyes: PERRL, anicteric sclera, EOMI, No scleral injection Ears, Nose, Mouth, Throat: moist mucous membranes, hard of hearing, other (No nasal discharge.), No poor dentition Cardiovascular: regular rate and rhythym, no murmur, rub, or gallop, pulses symmetric bilaterally, No edema Peripheral Pulses: 2+: dorsalis-pedis (R), dorsalis-pedis (L) Respiratory: no respiratory distress, reduced air movement (Significantly decreased air movement in all lung avila.) Gastrointestinal: normoactive bowel sounds, soft, non-tender abdomen, no palpable masses, No guarding, No distension Genitourinary: no bladder tenderness, No hurtado in urethra Skin: warm, no rashes or abrasions, other (Slight pallor), No abrasion Musculoskeletal: generalized weakness (Patient moves all extremities symmetrically.) Neurologic: AAOx3, sensation intact bilaterally, other (Grossly nonfocal exam.) , No facial droop Psychiatric: interacting appropriately, not anxious, not encephalopathic, thought process linear, No poor memory Lab Data & Imaging Review 05/30/18 04:10 05/30/18 04:10 WBC 7.81 10^3/uL (3.80-9.50) 05/30/18 04:10 RBC 4.35 10^6/uL (4.40-6.38) L 05/30/18 04:10 Hgb 14.8 g/dL (13.7-17.5) 05/30/18 04:10 Hct 43.0 % (40.0-51.0) 05/30/18 04:10 MCV 98.9 fL (81.5-99.8) 05/30/18 04:10 MCH 34.0 pg (27.9-34.1) 05/30/18 04:10 MCHC 34.4 g/dL (32.4-36.7) 05/30/18 04:10 RDW 13.4 % (11.5-15.2) 05/30/18 04:10 Plt Count 350 10^3/uL (150-400) 05/30/18 04:10 MPV 9.9 fL (8.7-11.7) 05/30/18 04:10 Neut % (Auto) 58.5 % (39.3-74.2) 05/30/18 04:10 Lymph % (Auto) 25.1 % (15.0-45.0) 05/30/18 04:10 [place] % (Auto) 10.6 % (4.5-13.0) 05/30/18 04:10 Eos % (Auto) 4.7 % (0.6-7.6) 05/30/18 04:10 Baso % (Auto) 0.8 % (0.3-1.7) 05/30/18 04:10 Nucleat RBC Rel Count 0.0 % (0.0-0.2) 05/30/18 04:10 Absolute Neuts (auto) 4.57 10^3/uL (1.70-6.50) 05/30/18 04:10 Absolute Lymphs (auto) 1.96 10^3/uL (1.00-3.00) 05/30/18 04:10 Absolute Monos (auto) 0.83 10^3/uL (0.30-0.80) H 05/30/18 04:10 Absolute Eos (auto) 0.37 10^3/uL (0.03-0.40) 05/30/18 04:10 Absolute Basos (auto) 0.06 10^3/uL (0.02-0.10) 05/30/18 04:10 Absolute Nucleated RBC 0.00 10^3/uL (0-0.01) 05/30/18 04:10 Immature Gran % 0.3 % (0.0-1.1) 05/30/18 04:10 Immature Gran # 0.02 10^3/uL (0.00-0.10) 05/30/18 04:10 PT 12.1 SEC (12.0-15.0) 05/29/18 22:30 INR 0.93 (0.83-1.16) 05/29/18 22:30 APTT 29.5 SEC (23.0-38.0) 05/29/18 22:30 D-Dimer 0.81 ug/mLFEU (0.00-0.50) H 05/29/18 22:30 Sodium 136 mEq/L (135-145) 05/30/18 04:10 Potassium 5.0 mEq/L (3.5-5.2) 05/30/18 04:10 Chloride 108 mEq/L (97-110) 05/30/18 04:10 Carbon Dioxide 21 mEq/l (22-31) L 05/30/18 04:10 Anion Gap 7 mEq/L (6-14) 05/30/18 04:10 BUN 20 mg/dL (7-23) 05/30/18 04:10 Creatinine 1.0 mg/dL (0.7-1.3) 05/30/18 04:10 Estimated GFR > 60 05/30/18 04:10 Glucose 108 mg/dL (70-100) H 05/30/18 04:10 Calcium 8.6 mg/dL (8.5-10.4) 05/30/18 04:10 Total Bilirubin 0.5 mg/dL (0.1-1.4) 05/29/18 22:30 Conjugated Bilirubin 0.4 mg/dL (0.0-0.5) 05/29/18 22:30 Unconjugated Bilirubin 0.1 mg/dL (0.0-1.1) 05/29/18 22:30 AST 30 IU/L (17-59) 05/29/18 22:30 ALT 34 IU/L (21-72) 05/29/18 22:30 Alkaline Phosphatase 83 IU/L (38-126) 05/29/18 22:30 POC Troponin I 0.01 ng/mL (0.00-0.08) 05/29/18 22:33 Total Protein 7.7 g/dL (6.3-8.2) 05/29/18 22:30 Albumin 4.5 g/dL (3.5-5.0) 05/29/18 22:30 Urine Opiates Screen NEGATIVE (NEGATIVE) 05/30/18 06:15 Urine Barbiturates NEGATIVE (NEGATIVE) 05/30/18 06:15 Ur Phencyclidine Scrn NEGATIVE (NEGATIVE) 05/30/18 06:15 Ur Amphetamine Screen NEGATIVE (NEGATIVE) 05/30/18 06:15 U Benzodiazepines Scrn NEGATIVE (NEGATIVE) 05/30/18 06:15 Urine Cocaine Screen NEGATIVE (NEGATIVE) 05/30/18 06:15 U Marijuana (THC) Screen NEGATIVE (NEGATIVE) 05/30/18 06:15 Ethyl Alcohol 48 mg/dL (0-10) H 05/29/18 22:30 Imaging Review: CT Scan of the Cervical Spine (Without Contrast) (With Multiplanar Reconstructions) at 2235 hours Clinical Indications: Trauma, syncope, fall, neck pain. Technique: Thinly collimated multidetector helical CT imaging of the cervical spine was reviewed in multiple planes. Multiplanar reconstructions reviewed on [employer] workstation and performed to better evaluate alignment. Dose reduction techniques were utilized. Findings: No definite acute cervical spine fracture. No evidence of odontoid fracture. Severe degenerative changes involving the odontoid. Severe degenerative disease at C3- C4, C4-C5, C5-C6 and C6-C7 with dorsal disk/osteophyte complex, bilateral uncovertebral osteophytes and moderate to severe bilateral facet arthropathy, left worse than right, resulting in multilevel at least moderate central canal stenosis especially at C4-C5, C5-C6 and C6-C7, and multilevel moderate to severe bilateral neural foraminal stenosis, worse at C4-C5, C5-C6 and C6-C7. Degenerative anterolisthesis at C2-C3 and C7-T1. No definite fracture or destructive osseous lesions. Impression: 1. No definite fracture. 2. Multilevel severe degenerative disease and facet arthropathy worst from C3- C4 through C6-C7 resulting in multilevel moderate central canal stenosis and moderate to severe bilateral neural foraminal stenosis as described above. 3.If there is persistent pain or neurological deficit, recommend MR cervical spine and consider flexion and extension views, if clinically indicated. Findings and recommendations discussed with Emergency Department physician, Flor Johnson PAC at 23: 00 hour, 05/29/2018. Final report concurs with initial preliminary interpretation. Dictated By: Polo Stewart CT Brain (Without Contrast) at 2235 hours History: Trauma . Comparison: None. Technique: Axial computed tomographic images of the brain without contrast. Dose reduction techniques were utilized. Multiplanar reconstructions including 3-D reconstructions performed and evaluated on [email or web address] workstation in order to better evaluate for occult calvarial or facial bone fractures. Findings: Ventricles, cisterns, and sulci are widened consistent with atrophy. No hydrocephalus, midline shift/herniation, or epidural/subdural hematomas. No acute intraparenchymal hemorrhage or mass effect. Cerebrovascular atherosclerosis. Hypodensities in the white matter of bilateral cerebral hemispheres. Bone windows demonstrate no displaced fractures. Moderate left maxillary sinusitis. No skull fracture. Old left basal ganglia infarct. Impression: 1. Moderate atrophy. 2. No acute hemorrhage, hydrocephalus, or mass effect. 3. Cerebrovascular atherosclerosis. 4. No definite acute infarct. 5. Moderate microvascular ischemic gliosis. 6. Old left basal ganglia infarct. 7. Moderate left maxillary sinusitis. Findings and recommendations discussed with Emergency Department physician, Flor Johnson PAC at 22: 50 hour, 05/29/2018. Final report concurs with initial preliminary interpretation. Dictated By: Polo Stewart CT Pulmonary Angiogram Clinical Indications: Chest pain in a 77-year-old male; evaluate for pulmonary embolic disease. Technique: Thinly collimated multidetector helical CT imaging was performed through the chest while [95] mL of Isovue-370 were injected intravenously without complication. The images were obtained at 4 mm thickness and reconstructed at 1.5 mm thickness. Sagittal and coronal reconstructions were performed. The examination is reviewed on the workstation by the interpreting physician at multiple window/level settings. Dose reduction techniques were utilized. Findings: Chest: Peribronchial thickening is noted and emphysematous changes are seen. Basilar opacities bilaterally presumably represent atelectasis. There is more focal consolidation in the right middle lobe which could reflect either atelectasis or pneumonia. Coronary arterial calcifications are noted which are incompletely evaluated on this nongated study.. Heart size is normal. No pericardial or pleural effusions are seen. Hilar and mediastinal contours are normal. There are no masses or noncalcified pulmonary nodules. The upper abdomen is negative for acute abnormality on this arterial phase study. CT Pulmonary Angiogram: The pulmonary arterial system is well opacified. No intraluminal filling defects are seen to suggest acute or chronic pulmonary embolic disease. No vascular malformations are seen. The thoracic aorta has a normal contour without evidence of aneurysm or dissection. Aortic ectasia as well as calcified aortic plaque formation is noted. Impression: 1. No evidence of pulmonary embolic disease. 2. Emphysematous changes with right middle lobe consolidation, atelectasis versus pneumonia. 3. See above report for additional findings. The study was performed as an emergency on-call case and a preliminary interpretation conveyed to the emergency Department. The final interpretation is concordant with the original communication. DR1 Dictated By: Jayant Smith MD MRI brain from 03/2018 - chronic microvascular changes. no acute CVA noted. EKG additional interpertation: NSR 70s. LAFB. QTC 427. No acute ST changes. Assessment & Plan Assessment: This is a pleasant 77-year-old gentleman with past medical history significant for COPD, continued tobacco abuse, macular degeneration, hx diverticulitis, BPPV who presents emergency department today following syncopal episode at home. #Syncope and collapse (Acute) - likely multifactorial including history of BPPV and PNA. Orthostatics negative. Patient given IV fluids in the emergency department. Antibiotic therapy initiated. #CAP (community acquired pneumonia) (Acute) - azithromycin Rocephin started #BPPV - PT consultation. Christine's maneuver if possible. #Degenerative disc disease, cervical (Acute) - patient asymptomatic. Denies any neck pain or radicular symptoms. Reviewed results with patient. #cerebral infarction on imaging - patient has new finding of left basal ganglia infarct new compared to MRI from March 2018. Patient without any focal deficits at this time. Findings were reviewed with the patient and noted that final radiology read is pending. If patient's symptoms should change consider MRI. #Sinusitis, acute maxillary sinus (Acute) - antibiotics as noted above for added will provide adequate coverage. #COPD - without exacerbation. Patient's lung avila are quite diminished. Incentive spirometry, nebulizers and home medications. # tobacco dependence - cessation encouraged. FEN - IV fluids. Diet as tolerated. Electrolyte adequate did not require placement. PPX - SCDs. Lovenox if patient should stay additional day. COR - FULL Dispo - the patient admitted observation status on the [facility] floor pending response to antibiotics.
[2018-05-30] MEDS ORDERED: FLUTICASONE HFA 220 MCG MDI IH SCH (09:00)
[2018-05-30] MEDS ORDERED: FLUTICASONE NASAL 120 SPRAYS/16 GM MDI EACHNARE SCH (09:00)
[2018-05-30] MEDS ORDERED: ENOXAPARIN 40 MG/0.4 ML SYR SC SCH (09:00)
[2018-05-30 13:10] VITALS: BP 125/70
--- NOTE | 2018-05-30 14:29 | ASMTLACE ---
LACE Length of stay for Answers: Less than 1 day current admission Acuity / Level of Answers: No Care: Did the patient have an inpatient admission? Comorbidities - select Answers: Chronic pulmonary disease all that apply # of Emergency department Answers: 1-2 visits in the last 6 months Score: 3 Date Signed: 05/30/2018 02:29 PM Electronically Signed By:Sabrina Baca RN
--- NOTE | 2018-05-30 14:32 | PDDCSUM ---
Discharge Summary Discharge Summary: Date of Admission: 05/30/2018 Date of Discharge: 05/30/2018 Procedures: CT C Spine, CT Head, CTA Chest This is a pleasant 77-year-old gentleman with past medical history significant for COPD, continued tobacco abuse, macular degeneration, hx diverticulitis, BPPV who [facility] syncopal episode at home. #Syncope and collapse (Acute) - likely vasovagal as well as possibly multifactorial including history of BPPV and PNA. Orthostatics negative. Patient given IV fluids in the emergency department. Antibiotic therapy initiated. #CAP (community acquired pneumonia) (Acute) - azithromycin Rocephin started, transitioned to PO Levaquin upon discharge to complete total 5 day course #BPPV - PT consultation. #Degenerative disc disease, cervical (Acute) - patient asymptomatic. Denies any neck pain or radicular symptoms. Reviewed results with patient. #cerebral infarction on imaging - CT Head showed old left basal ganglia infarct , no focal deficits noted on this admission: #Sinusitis, acute maxillary sinus (Acute) - antibiotics as noted above for added will provide adequate coverage. #COPD - without exacerbation. Patient's lung avila are quite diminished. Incentive spirometry, nebulizers and home medications. # tobacco dependence - cessation encouraged. Time spent on discharge was >35 minutes with >50% of time spent on patient education and counseling.
--- NOTE | 2018-05-30 15:40 | ASMTDCNOTE ---
Case Management Discharge Discharge Order Complete? Answers: Yes Patient to Obtain Answers: Independently Medications Transportation Arranged Answers: Family/Friends Discharge Comments Notes: Patient discharged home with . RX for outpatient PT provided. No other needs. Date Signed: 05/30/2018 03:40 PM Electronically Signed By:Sabrina Baca RN
[2018-05-31] MEDS ORDERED: AZITHROMYCIN IV 500 MG in NS 250 ML IV SCH (01:00)
== END 2018-05-30 16:00 | disposition home or self-care (01) ==
LOC: INTOOBSV 05-30 00:58 → F1N 05-30 01:47
PROVIDERS: ADMIT Family Medicine; ATTEND Internal Medicine
DX: R55 Syncope and collapse (principal); J18.9 Pneumonia, unspecified organism; J01.00 Acute maxillary sinusitis, unspecified; H81.10 Benign paroxysmal vertigo, unspecified ear; J44.9 Chronic obstructive pulmonary disease, unspecified; M50.81 Other cervical disc disorders, high cervical region; M50.823 Other cervical disc disorders at C6-C7 level; F17.210 Nicotine dependence, cigarettes, uncomplicated; F10.920 Alcohol use, unspecified with intoxication, uncomplicated; Y90.2 Blood alcohol level of 40-59 mg/100 ml; Z86.73 Personal history of transient ischemic attack (TIA), and cerebral infarction without residual deficits
CPT/HCPCS: 70450; 71275; 72125; 93005; 96361; 96365; 96372; 96375; 97112; 97161; 99285; G0378; J0456; J0696; J1650; J2405; Q9967; 80305; 84484-ER; G0480; J0692